=== PATIENT | male | born 1950 | race Caucasian/White ===

== ENCOUNTER → 2018-05-14 | Outpatient (CLI) | payer MEDICARE, OTHER ==
[~2018-05-14] MED LIST: ACYC800 PO; AMLO5 PO; ASPI325EC PO; ASPI81CH PO; ATOR10 PO; ATOR40TA PO; BISA5EC PO; CLOP75 PO; EFFIENT 10 MG PO; EFFIENT10 MG PO; FERR325 PO; FISH1000 PO; Feosol45 MG PO; GABA300 PO; HYDACE5 PO; HYDMOR2 PO; HYDMOR4 PO; IBUP600 PO; KETO10 PO; LISI5 PO; Lisinopril2.5 MG; METO25ER PO; NAPR500 PO; OXYACE5T PO; OXYACE7.5T PO; OXYC20ER; OXYC5; PANT40; PANT40 PO; Plavix75 MG PO; Prinivil5 MG PO; SUCR1 PO; TICA90TA PO; TRILYTE PO; VALA500 PO
[2018-05-14 17:27] LABS: U Cannabinoids Screen DETECTED
[2018-05-14 17:28] LABS: U Amphetamine Screen DETECTED; U Barbituate Screen Not Detected; U Benzodiazapine Screen Not Detected; U Buprenorphine Screen Not Detected; U Cocaine Screen Not Detected; U Methadone Screen Not Detected; U Methamphetamine Screen Not Detected; U Opiates Screen Not Detected; U Oxycodone Screen Not Detected; U Phencyclidine Screen Not Detected; U Propoxyphene Screen Not Detected
== END ==
LOC: LAB 16:47 → LAB SHORT 16:47
PROVIDERS: Internal Medicine Hematology & Oncology
DX: Z51.81 Encounter for therapeutic drug level monitoring (principal); Z79.899 Other long term (current) drug therapy

== ENCOUNTER → 2018-11-30 | Outpatient (CLI) | payer MEDICARE, OTHER ==
[2018-11-30 14:08] LABS: U Amphetamine Screen Not Detected; U Barbituate Screen Not Detected; U Benzodiazapine Screen Not Detected; U Buprenorphine Screen Not Detected; U Cannabinoids Screen DETECTED; U Cocaine Screen Not Detected; U Methadone Screen Not Detected; U Methamphetamine Screen Not Detected; U Opiates Screen Not Detected; U Oxycodone Screen Not Detected; U Phencyclidine Screen Not Detected; U Propoxyphene Screen Not Detected
== END | disposition home or self-care (01) ==
LOC: LAB 12:38 → LAB SHORT 12:38
PROVIDERS: Internal Medicine Hematology & Oncology
DX: F11.20 Opioid dependence, uncomplicated (principal); Z79.899 Other long term (current) drug therapy
CPT/HCPCS: G0480

== ENCOUNTER 2019-02-13 06:53 | Inpatient (IN) | payer MEDICARE, OTHER ==
[~2019-02-13] VITALS: Ht 167.6 cm; Wt 48.6 kg
[~2019-02-13 06:53] MED LIST changes: +CEFP200 PO; +CLON.1 PO; +Flagyl500 MG PO
[2019-02-13 07:30] LABS: BASOPHILS ABSOLUTE AUTO 0.05 K/mm3 (0.00-0.23); BASOPHILS PERCENT AUTO 0 % (0-2); EOSINOPHILS ABSOLUTE AUTO 0.42 K/mm3 (0.00-0.68); EOSINOPHILS PERCENT AUTO 2 % (0-6); Hematocrit 43.1 % (37.0-53.0); Hemoglobin 14.5 g/dL (13.5-17.5); IMMATURE GRAN PERCENT AUTO 1 % (0-1); LYMPHOCYTES ABSOLUTE AUTO 2.47 K/mm3 (0.84-5.20); LYMPHOCYTES PERCENT AUTO 14 % (21-46); MONOCYTES ABSOLUTE AUTO 1.28 K/mm3 (0.16-1.47); MONOCYTES PERCENT AUTO 7 % (4-13); Mean Corpuscular HGB 30.5 pg (26.0-34.0); Mean Corpuscular HGB Conc 33.6 g/dL (31.5-36.5); Mean Corpuscular Volume 91 fL (80-100); Mean Platelet Volume 10.4 fL (9.1-12.4); NEUTROPHILS ABSOLUTE AUTO 13.77 K/mm3 (1.96-9.15); NEUTROPHILS PERCENT AUTO 76 % (41-73); Platelet Count 205 K/mm3 (150-400); RDW Coefficient Variation 13.3 % (11.7-14.2); RDW Standard Deviation 44.9 fL (35.1-46.3); Red Blood Cell Count 4.75 M/mm3 (4.30-5.90); White Blood Cell Count 18.09 K/mm3 (4.00-11.30)
[2019-02-13 07:41] LABS: Alanine Aminotransfer (ALT/SGP 13 U/L (12-78); Albumin, Blood 3.5 g/dL (3.4-5.0); Albumin/Globulin Ratio 0.9 (0.8-1.8); Alk Phos 71 U/L (50-136); Anion Gap 9 mmol/L (6-16); Aspartate Aminotrans (AST/SGOT 15 U/L (12-37); Bilirubin, Total 0.8 mg/dL (0.1-1.0); Blood Urea Nitrogen 23 mg/dL (8-24); Bun/Creatinine Ratio 31.2 (12.0-20.0); CO2, Blood 26 mmol/L (21-32); Chloride, Blood 103 mmol/L (98-108); Creatinine, Blood 0.74 mg/dL (0.60-1.20); Globulin, Blood 3.9 g/dL (2.2-4.0); Glomerular Filtration Rate >60 (60-); Glucose, Blood 95 mg/dL (70-99); Potassium, Blood 3.8 mmol/L (3.5-5.5); Sodium, Blood 138 mmol/L (136-145); Total Protein, Blood 7.4 g/dL (6.4-8.2)
--- NOTE | 2019-02-13 10:28 | NUR ---
PATIENT GAVE PERMISSION FOR ME TO CARE FOR HIM TODAY 02/13/19. History, Chart, Medications and Allergies reviewed before start of procedure.Patient confirms NPO status and agrees with scheduled surgery. Surgical site prepped with 2% Chlorhexidine cloth wipe.
--- NOTE | 2019-02-13 10:54 | NUR ---
STUDENT RN ASSISTING IN PREOPERATIVE CARE. AGREE WITH HER CHARTING AND CARE.
--- NOTE | 2019-02-13 11:26 | NUR ---
02/13/[address] OK WITH UNASYN 3GM IV GIVEN IN ER AT [address] LLOYD CANCELED FLAGYL 500MG IV ORDERED BY ER TO BE GIVEN.
--- NOTE | 2019-02-13 14:25 | NUR ---
REPORT FROM CREDIT ASSESSMENT ANALYST.
--- NOTE | 2019-02-13 14:40 | NUR ---
PT TO ROOM 233. PT DROWSY. ARRIVES WITH 2 IVS TO LEFT ARM, ON ROOM AIR. NEW COLOSTOMY TO LLQ (NO OUTPUT), SUAERZ NOTED WITH DEVIN URINE. VSS. NO FAMILY AT THIS TIME.
--- NOTE | 2019-02-13 15:59 | NUR ---
IVF STARTED PER EMAR. PT MEDICATED WITH TORADOL AND DILAUDID FOR PAIN. PT RESTING. DOZES OFF EASILY.
--- NOTE | 2019-02-13 16:45 | NUR ---
PT SEEMS RESTFUL. RESP EVEN AND NON LABORED. BP IMPROVED.
--- NOTE | 2019-02-13 18:30 | NUR ---
PT STILL APPEARS COMFORTABLE. DROWSY. WAKES WITH VERBAL STIMULI. FOLLOWS SIMPLE DIRECTION. SPOKE WITH FAMILY ON THE PHONE EARLIER FOR UPDATE.
--- NOTE | 2019-02-13 19:22 | NUR ---
REPORT TO DONNA WU.
[2019-02-14 04:30] LABS: BASOPHILS ABSOLUTE AUTO 0.01 K/mm3 (0.00-0.23); BASOPHILS PERCENT AUTO 0 % (0-2); EOSINOPHILS PERCENT AUTO 0 % (0-6); Hematocrit 34.1 % (37.0-53.0); Hemoglobin 11.4 g/dL (13.5-17.5); IMMATURE GRAN ABSOLUTE AUTO 0.08 K/mm3 (0.00-0.10); IMMATURE GRAN PERCENT AUTO 1 % (0-1); LYMPHOCYTES ABSOLUTE AUTO 0.59 K/mm3 (0.84-5.20); LYMPHOCYTES PERCENT AUTO 4 % (21-46); MONOCYTES ABSOLUTE AUTO 1.18 K/mm3 (0.16-1.47); MONOCYTES PERCENT AUTO 8 % (4-13); Mean Corpuscular HGB 31.1 pg (26.0-34.0); Mean Corpuscular HGB Conc 33.4 g/dL (31.5-36.5); Mean Corpuscular Volume 93 fL (80-100); Mean Platelet Volume 10.6 fL (9.1-12.4); NEUTROPHILS ABSOLUTE AUTO 12.81 K/mm3 (1.96-9.15); NEUTROPHILS PERCENT AUTO 87 % (41-73); Platelet Count 201 K/mm3 (150-400); RDW Coefficient Variation 13.4 % (11.7-14.2); RDW Standard Deviation 46.3 fL (35.1-46.3); Red Blood Cell Count 3.67 M/mm3 (4.30-5.90); White Blood Cell Count 14.67 K/mm3 (4.00-11.30)
[2019-02-14 04:46] LABS: Anion Gap 7 mmol/L (6-16); Blood Urea Nitrogen 26 mg/dL (8-24); Bun/Creatinine Ratio 30.6 (12.0-20.0); CO2, Blood 28 mmol/L (21-32); Calcium, Blood 7.5 mg/dL (8.5-10.1); Chloride, Blood 105 mmol/L (98-108); Creatinine, Blood 0.85 mg/dL (0.60-1.20); Glomerular Filtration Rate >60 (60-); Glucose, Blood 177 mg/dL (70-99); Potassium, Blood 3.9 mmol/L (3.5-5.5); Sodium, Blood 140 mmol/L (136-145)
--- NOTE | 2019-02-14 07:00 | NUR ---
REPORT FROM DONNA WU. ASSUMED PT CARE.
--- NOTE | 2019-02-14 07:08 | NUR ---
NEW BAG OF LR HUNG, PT MEDICATED WITH DILAUDID AND TORADOL IV PER EMAR ORDERS. PT C/O PAIN 06/08 TO ABD. PT ALERT AND ORIENTED. PT WATCHING TV.
--- NOTE | 2019-02-14 07:41 | NUR ---
SHIFT SUMMARY PT A&O X4 T/O SHIFT. POD# 1 SIGMOID COLECTOMY WITH OSTOMY; STOMA BEEFY PINK, VERY SCANT LIQUID OUT. NO ABD DISTENTION; BTX4; PT TOLERATING CLEARS. PAIN MANAGED PER EMAR. VSS; RA; CONT. OXIMETRY IN PLACE. SCD'S TO BLE'S. CALL LIGHT IN REACH; REPORT GIVEN TO DAY SHIFT RN.
--- NOTE | 2019-02-14 08:25 | NUR ---
PT MEDICATED PER EMAR. PT SITTING UP IN BED. NADN. EATING SOME JELLO AND SIPPING TEA. PT WATCHING TV. PT DENIES NAUSEA. ASSESSMENT CHARTED.
--- NOTE | 2019-02-14 09:15 | NUR ---
ABX STARTED. PT IN NO DISTRESS. TRAY CLEARED. PT RESTING AT THIS TIME. CALL LIGHT IN REACH.
--- NOTE | 2019-02-14 09:55 | NUR ---
ABX COMPLETE. PT RESTING IN POSITION OF COMFORT.
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
--- NOTE | 2019-02-14 11:44 | NUR ---
PT MEDICATED WITH ZOFRAN FOR C/O NAUSEA AND HEART BURN. FAMILY AT BEDSIDE.
--- NOTE | 2019-02-14 12:55 | NUR ---
PT MEDICATED WITH 4MG DILAUDID FOR PAIN 05/08. IV ABX INFUSING. FAMILY AT BEDSIDE.
--- NOTE | 2019-02-14 13:20 | NUR ---
PT ABX COMPLETE. PT TO RR TO VOID, 75ML DEVIN URINE COLLECTED.
--- NOTE | 2019-02-14 13:33 | NUR ---
PT UP WALKING HALLS WITH FAMILY.
--- NOTE | 2019-02-14 14:05 | NUR ---
PT RETURNED TO ROOM.
--- NOTE | 2019-02-14 15:10 | NUR ---
PT SITTING UP IN BED. NO DISTRESS NOTED. PT WATCHING TV.
--- NOTE | 2019-02-14 16:00 | NUR ---
DR LLOYD TO ROOM. PLAN TO CONT TO MONITOR.
--- NOTE | 2019-02-14 16:09 | NUR ---
BOTH IVS REDRESSED. NOT IVS FLUSH WELL. PT UP AMB IN HEREDIA.
--- NOTE | 2019-02-14 16:49 | NUR ---
PT RETURNED TO ROOM FROM WALK. WILL MEDICATE FOR PAIN.
--- NOTE | 2019-02-14 16:56 | NUR ---
PT MEDICATED WITH TORADOL AND DILAUDID PER EMAR. PT PLAYING ON COMPUTER.
--- NOTE | 2019-02-14 17:28 | NUR ---
DINNER TRAY PROVIDED. ABX STARTED.
--- NOTE | 2019-02-14 18:31 | NUR ---
PT ABX COMPLETE. FLUSH COMPLETE. PT TALKING ON PHONE. DENIES NEEDS.
--- NOTE | 2019-02-14 18:46 | NUR ---
PT AMBULATED IN HEREDIA. RETURNED TO ROOM AT THIS TIME. NEW CLEAN SOCKS PROVIDED.
--- NOTE | 2019-02-14 19:00 | NUR ---
REPORT AND WALKING ROUNDS WITH DONNA WU.
--- NOTE | 2019-02-15 04:25 | NUR ---
SHFIT SUMMARY PT A&O X4 T/O SHIFT. POD#2 SMALL BOWEL PARTIAL RESECTION AND COLON/SIGMOID RESECTION WITH OSTOMY; SCANT OUT OF STOMA, BEEFY PINK. PAIN MANAGED PER EMAR. PT DENIES SOB, NAUSEA AND CP; RA; VSS; NO ACUTE CHANGES. PT OFF UNIT X1; INDEPENDENT WITH FWW PER PT BASELINE. BTX4; TOLERATING FULL DIET WELL. CALL LIGHT IN REACH; PT DEMONSTRATES USE. WCTM UNTIL REPORT TO DAY SHIFT RN.
--- NOTE | 2019-02-15 07:05 | NUR ---
REPORT FROM DONNA WU. ASSUMED PT CARE.
--- NOTE | 2019-02-15 07:30 | NUR ---
PT APPEARS TO BE RESTING. NADN.
--- NOTE | 2019-02-15 08:10 | NUR ---
PT MEDICATED WITH SCHEDULED MEDS AND PRN DILAUDID. PT DENIES NAUSEA. TOLERATED DINNER LAST PM. DECREASED APPETITE.
--- NOTE | 2019-02-15 08:20 | NUR ---
PT AMBULATING IN HALLS. DENIES NEEDS.
--- NOTE | 2019-02-15 10:38 | NUR ---
PT BACK TO ROOM.
--- NOTE | 2019-02-15 11:00 | NUR ---
PT FAMILY TO ROOM.
--- NOTE | 2019-02-15 11:50 | NUR ---
PT MEDICATED WITH PRN DILAUDID FOR C/O PAIN 04/08. IV ABX STARTED. PT DENIES NAUSEA. FAMILY AT BEDSIDE.
--- NOTE | 2019-02-15 12:25 | NUR ---
IV TO LEFT AC LEAKING. REMOVED AND NEW ACCESS TO RIGHT FA STARTED. PT ALLI WELL. IV ABX ALMOST COMPLETE.
--- NOTE | 2019-02-15 14:45 | NUR ---
PT AMBULATING IN HALLS. DENIES NEEDS.
--- NOTE | 2019-02-15 16:05 | NUR ---
200 allyson colored urine emptied from urinal. pt medicated with 4mg dilaudid po per orders. pt denies nausea.
--- NOTE | 2019-02-15 17:00 | NUR ---
PT AMBULATING IN HALLS.
--- NOTE | 2019-02-15 17:20 | NUR ---
DINNER TRAY PROVIDED.
--- NOTE | 2019-02-16 05:13 | NUR ---
PT C/O INCREASED PAIN "INTESTINES" LEVEL 10 THIS AM WITH WAKENING. MEDICATED WITH PO DILAUDID. PT REPORTING STILL LEVEL 9 AFTER PAIN MEDS. ABD REMAINS DISTENDED. BTS TYMPANIC. OSTOMY WITH OLD BLOOD ONLY. NO FLATUS.NO STOOL. BP 194/86 TEMP 100.1 HGB AND HCT TRENDING DOWN ON LAST LABS. PT WITH APPROX 3 L + LAST 24 HR. HAS JVD. ONLY NOTED CRACKLES L BASE.NO C/O CP OR SOB.URINARY OUTPUT 200 ML DARK WITH BLADDER SCAN CHECKED DUE TO INCREASED ABD PAIN WITH A READING OF 109.PT REFUSED TO ATTEMPT VOID.I CALLED DR LLOYD And DISCUSSED ABOVE WITH NO NEW ORDERS GIVEN.
--- NOTE | 2019-02-16 07:15 | NUR ---
PT SLEEPING WAKES TO VERBAL STIMULI REPORTS ABD PAIN 08/08 STATED THAT HE HAS NO NAUSEA AT THIS TIME OSTOMY HAS SCANT AMT OF DK BLOOD
--- NOTE | 2019-02-16 08:07 | NUR ---
SUMMARY PT DIET ORDER NOTED ADVANCE JIGNESH I DECREASED DIET TO FULL LIQ ONLY. PT VOIDING FURTHER AFTER BLADDER SCAN.
--- NOTE | 2019-02-16 10:15 | NUR ---
PT LAYING IN BED STATED PAIN IS BETTER 4/10 PASSING FLATUS IN BAG OFFERED PAIN MEDS PT DECLINED AT THIS TIME
--- NOTE | 2019-02-16 11:43 | NUR ---
PT WANTING TO GO OUT AND SMOKE
--- NOTE | 2019-02-16 12:15 | NUR ---
dr tafoya by to see pt
--- NOTE | 2019-02-16 13:56 | NUR ---
pt amb outside back req popsicle
--- NOTE | 2019-02-16 18:39 | NUR ---
pt req crackers and milk for dinner still passing flatus in ostomy no stool
--- NOTE | 2019-02-17 05:58 | NUR ---
SUMMARY PT AMBULATORY. VOIDING.PASSING FLATUS AND OLD BLOOD PER OSTOMY. NO C/O NAUSEA THIS SHIFT.SLEPT QUIETLY AFTER IV DILAUDID. WOKE THIS AM AND RECEIVED PO DILAUDID AND TORADOL.CONT TO REFUSE USING IS,PAS. VERB UNDERSTANDING OF RISKS.NO ACUTE CHANGES DURING THE NIGHT.
--- NOTE | 2019-02-17 07:19 | NUR ---
pt sleeping wakes to verbal stimuli stated still passing faltus no stool in ostomy small amt of liquid blood stoma red and moist
--- NOTE | 2019-02-17 12:30 | NUR ---
PT PASSING THICK SOFT DK STOOL ALONG WITH FLATUS NO INCREASED GAS CRAMPS
--- NOTE | 2019-02-17 13:32 | NUR ---
ostomy changed education with pt and handouts given pt to come later will also go over it with her later
--- NOTE | 2019-02-17 19:11 | NUR ---
PT BACK TO ROOM FROM TAKING OUT HIS EARLIER I DID GIVE HER EDUCATION ALSO ON OSTOMY CARE WITH DEMONSTRATION
--- NOTE | 2019-02-18 06:40 | NUR ---
LYING IN SEMI FOWLERS WITH EYES CLOSED. MEDICATED FOR PAIN X2 THIS SHIFT. NO FURTHER CHANGES SINCE START OF SHIFT. SAFETY MEASURES IN PLACE. WILL GIVE HAND OFF TO ONCOMING SHIFT USING SBAR.
--- NOTE | 2019-02-18 17:18 | NUR ---
SHIFT SUMMARY POD5. OSTOMY CLEARING BROWN/LOOSE STOOL. REINFORCE OSTOMY EMPTTING EDUCATION. PT INDEPENDANT IN ROOM, WALKING OUTSIDE TO SMOKE THROUGHOUT SHIFT. PAIN MANAGED DURING SHIFT.
--- NOTE | 2019-02-19 07:37 | NUR ---
SUMMARY: POD 6 COLLECTOMY WITH NEW COLOSTOMY BY DR. LLOYD. NO ACUTE CHANGES THIS SHIFT, VSS, AFEBRILE. TOLERATING REG PO INTAKE, VOIDING CLEAR YELLOW. PT BURPS COLOSTOMY X1 THIS SHIFT WITH RN ENCOURAGEMENT BUT STILL APPEARS UNINTERESTED IN DIRECTING OWN COLOSTOMY CARE. PAIN WELL CONTROLLED WITH 4MG PO DILAUDID. ANTICIPATE DC HOME LATER THIS DAY.
--- NOTE | 2019-02-19 14:30 | NUR ---
DISCHARGE PT DISCHARGED HOME FROM UNIT AT APROX 1430. PT GIVEN WRITTEN AND VERBAL DISCHARGE INSTRUCTIONS AND VERBALIZED UNDERSTANDING OF THESE INSTRUCTIONS. PT REFUSED FURTHER OSTOMY EDUCATION HE STATED "MY AUNT KNOWS HOW TO DO IT". HOME HEALTH IN PLACE FOR CONTINUING OSTOMY EDUCATION. WHEELCHAIR TO CAR.
== END 2019-02-19 14:29 | disposition home or self-care (01) | DRG 330 ==
LOC: ER 06:53 → SURS 06:54 → EDBEDREQSVC 09:44 → SURS 14:08
PROVIDERS: Emergency Medicine; ADMIT Surgery
PROC: 0DTN0ZZ Resection of Sigmoid Colon, Open Approach (ICD-10-PCS; principal; 2019-02-13 10:30)
PROC: 0D1N074 Bypass Sigmoid Colon to Cutaneous with Autologous Tissue Substitute, Open Approach (ICD-10-PCS; 2019-02-13 10:30)
DX: K56.609 Unspecified intestinal obstruction, unspecified as to partial versus complete obstruction (principal); K57.20 Diverticulitis of large intestine with perforation and abscess without bleeding; I73.9 Peripheral vascular disease, unspecified; J44.9 Chronic obstructive pulmonary disease, unspecified; K21.9 Gastro-esophageal reflux disease without esophagitis; N40.0 Benign prostatic hyperplasia without lower urinary tract symptoms; K57.30 Diverticulosis of large intestine without perforation or abscess without bleeding; I10 Essential (primary) hypertension; F17.210 Nicotine dependence, cigarettes, uncomplicated; I25.10 Atherosclerotic heart disease of native coronary artery without angina pectoris
CPT/HCPCS: 36415; 74176; 80048; 80053; 81001; 83605; 83690; 84484; 85025; 88305; 93005; 93010; 94762; 96361; 96365; 96374; 96375; 99284-25; 99285-25; A9270-GY; J0295; J0330; J0360; J1100; J1170; J1650; J1885; J2250; J2405; J2543; J2704; J2710; J3010; J7030; J7120

== ENCOUNTER 2019-03-27 09:19 | Emergency (ER) | payer MEDICARE, OTHER ==
[~2019-03-27] VITALS: Ht 167.6 cm; Wt 44.0 kg
[2019-03-27 10:14] LABS: BASOPHILS ABSOLUTE AUTO 0.02 K/mm3 (0.00-0.23); BASOPHILS PERCENT AUTO 0 % (0-2); EOSINOPHILS ABSOLUTE AUTO 0.01 K/mm3 (0.00-0.68); EOSINOPHILS PERCENT AUTO 0 % (0-6); Hematocrit 44.6 % (37.0-53.0); Hemoglobin 15.2 g/dL (13.5-17.5); IMMATURE GRAN ABSOLUTE AUTO 0.03 K/mm3 (0.00-0.10); IMMATURE GRAN PERCENT AUTO 0 % (0-1); LYMPHOCYTES ABSOLUTE AUTO 2.22 K/mm3 (0.84-5.20); LYMPHOCYTES PERCENT AUTO 18 % (21-46); MONOCYTES ABSOLUTE AUTO 0.98 K/mm3 (0.16-1.47); MONOCYTES PERCENT AUTO 8 % (4-13); Mean Corpuscular HGB 29.3 pg (26.0-34.0); Mean Corpuscular HGB Conc 34.1 g/dL (31.5-36.5); Mean Corpuscular Volume 86 fL (80-100); Mean Platelet Volume 10.4 fL (9.1-12.4); NEUTROPHILS ABSOLUTE AUTO 9.08 K/mm3 (1.96-9.15); NEUTROPHILS PERCENT AUTO 74 % (41-73); Platelet Count 271 K/mm3 (150-400); RDW Coefficient Variation 13.8 % (11.7-14.2); RDW Standard Deviation 43.7 fL (35.1-46.3); Red Blood Cell Count 5.18 M/mm3 (4.30-5.90); White Blood Cell Count 12.34 K/mm3 (4.00-11.30)
[2019-03-27 10:33] LABS: Alanine Aminotransfer (ALT/SGP 20 U/L (12-78); Albumin, Blood 4.3 g/dL (3.4-5.0); Albumin/Globulin Ratio 1.1 (0.8-1.8); Alk Phos 102 U/L (50-136); Anion Gap 10 mmol/L (6-16); Aspartate Aminotrans (AST/SGOT 21 U/L (12-37); Bilirubin, Total 0.9 mg/dL (0.1-1.0); Blood Urea Nitrogen 24 mg/dL (8-24); Bun/Creatinine Ratio 29.4 (12.0-20.0); CO2, Blood 27 mmol/L (21-32); Calcium, Blood 9.6 mg/dL (8.5-10.1); Chloride, Blood 97 mmol/L (98-108); Creatinine, Blood 0.82 mg/dL (0.60-1.20); Glomerular Filtration Rate >60 (60-); Glucose, Blood 116 mg/dL (70-99); Potassium, Blood 3.6 mmol/L (3.5-5.5); Sodium, Blood 134 mmol/L (136-145); Total Protein, Blood 8.3 g/dL (6.4-8.2); Troponin I 0.026 ng/mL (0.000-0.040)
[2019-03-27 12:07] LABS: Source, Urine Clean Catch
[2019-03-27 12:09] LABS: Bilirubin, Urine Neg (Neg); Blood, Urine 1+ (Neg); Glucose Qualitative, Urine Neg (Neg); Ketones, Urine 4+ (Neg); Leukocyte Esterase, Urine Neg (Neg); Nitrite, Urine Neg (Neg); Protein, Urine 2+ (Neg); Urobilinogen, Urine NORM (Normal)
[2019-03-27 12:17] LABS: Appearance, Urine Clear (Clear); Color, Urine Yellow (P-Yellow)
[2019-03-27 12:19] LABS: White Blood Cells, Urine 0-2 /hpf (0-5)
[2019-03-27 12:20] LABS: Red Blood Cells, Urine 0-2 /hpf (0-2)
[2019-03-27 12:22] LABS: Bacteria Not Seen /hpf; Mucus Light (0-Heavy); Squamous Epithelial Cells Rare /hpf (Few)
[2019-03-27] MEDS ORDERED: PROM25 PO (12:35)
== END 2019-03-27 13:04 | disposition home or self-care (01) ==
LOC: ER 09:19
PROVIDERS: Emergency Medicine
DX: R10.32 Left lower quadrant pain (principal); R11.2 Nausea with vomiting, unspecified; R19.7 Diarrhea, unspecified; J44.9 Chronic obstructive pulmonary disease, unspecified; I25.2 Old myocardial infarction; F17.210 Nicotine dependence, cigarettes, uncomplicated; Z93.9 Artificial opening status, unspecified
CPT/HCPCS: 36415; 74018; 80053; 81001; 83690; 83735; 84484; 85025; 93005; 93010; 96361; 96374; 96375; 96376; 99284-25; J1170; J2405; J7120

== ENCOUNTER 2019-03-30 10:31 | Emergency (ER) | payer MEDICARE, OTHER ==
[~2019-03-30] VITALS: Ht 167.6 cm; Wt 39.0 kg
[~2019-03-30 10:31] MED LIST changes: +PROM25 PO
[2019-03-30 10:50] LABS: BASOPHILS ABSOLUTE AUTO 0.06 K/mm3 (0.00-0.23); BASOPHILS PERCENT AUTO 1 % (0-2); EOSINOPHILS ABSOLUTE AUTO 0.35 K/mm3 (0.00-0.68); EOSINOPHILS PERCENT AUTO 4 % (0-6); Hematocrit 40.4 % (37.0-53.0); Hemoglobin 13.6 g/dL (13.5-17.5); IMMATURE GRAN ABSOLUTE AUTO 0.03 K/mm3 (0.00-0.10); IMMATURE GRAN PERCENT AUTO 0 % (0-1); LYMPHOCYTES ABSOLUTE AUTO 3.81 K/mm3 (0.84-5.20); LYMPHOCYTES PERCENT AUTO 40 % (21-46); MONOCYTES ABSOLUTE AUTO 0.94 K/mm3 (0.16-1.47); MONOCYTES PERCENT AUTO 10 % (4-13); Mean Corpuscular HGB 28.9 pg (26.0-34.0); Mean Corpuscular HGB Conc 33.7 g/dL (31.5-36.5); Mean Corpuscular Volume 86 fL (80-100); Mean Platelet Volume 10.4 fL (9.1-12.4); NEUTROPHILS ABSOLUTE AUTO 4.46 K/mm3 (1.96-9.15); NEUTROPHILS PERCENT AUTO 46 % (41-73); Platelet Count 224 K/mm3 (150-400); RDW Coefficient Variation 13.7 % (11.7-14.2); RDW Standard Deviation 42.7 fL (35.1-46.3); White Blood Cell Count 9.65 K/mm3 (4.00-11.30)
[2019-03-30 11:06] LABS: International Normalized Ratio 0.98; Prothrombin Time Results 10.4 Sec (9.7-11.5)
[2019-03-30 11:17] LABS: Albumin/Globulin Ratio 1.3 (0.8-1.8); Bilirubin, Total 0.5 mg/dL (0.1-1.0); Calcium, Blood 9.2 mg/dL (8.5-10.1); Creatinine, Blood 1.36 mg/dL (0.60-1.20); Globulin, Blood 3.1 g/dL (2.2-4.0); Potassium, Blood 3.4 mmol/L (3.5-5.5); Total Protein, Blood 7.1 g/dL (6.4-8.2)
[2019-03-30 12:13] LABS: Source, Urine Clean Catch
[2019-03-30 12:25] LABS: Bilirubin, Urine Neg (Neg); Blood, Urine 1+ (Neg); Glucose Qualitative, Urine Neg (Neg); Ketones, Urine Neg (Neg); Leukocyte Esterase, Urine 1+ (Neg); Nitrite, Urine Neg (Neg); Protein, Urine 1+ (Neg); Specific Gravity, Urine 1.025 (1.003-1.022); Urobilinogen, Urine NORM (Normal)
[2019-03-30] MEDS ORDERED: Zofran4 MG PO (12:27)
[2019-03-30 12:32] LABS: Appearance, Urine Clear (Clear); Color, Urine Yellow (P-Yellow)
[2019-03-30 12:37] LABS: Bacteria Rare /hpf; Red Blood Cells, Urine 0-2 /hpf (0-2); Squamous Epithelial Cells Rare /hpf (Few)
== END 2019-03-30 12:30 | disposition home or self-care (01) ==
LOC: ER 10:31
PROVIDERS: Emergency Medicine
DX: R41.82 Altered mental status, unspecified (principal); R63.4 Abnormal weight loss; Z68.1 Body mass index [BMI] 19.9 or less, adult; E86.0 Dehydration; Z51.5 Encounter for palliative care; Z88.5 Allergy status to narcotic agent; Z88.8 Allergy status to other drugs, medicaments and biological substances; Z79.891 Long term (current) use of opiate analgesic; Z79.899 Other long term (current) drug therapy; I25.2 Old myocardial infarction; J44.9 Chronic obstructive pulmonary disease, unspecified; F17.210 Nicotine dependence, cigarettes, uncomplicated
CPT/HCPCS: 36415; 70450; 71045; 80053; 81001; 85025; 85610; 85730; 87086; 93005; 93010; 96360; 99285-25; J7030

== ENCOUNTER 2019-04-17 11:32 | Emergency (ER) | payer MEDICARE, OTHER ==
[~2019-04-17] VITALS: Ht 165.1 cm; Wt 44.5 kg
[~2019-04-17 11:32] MED LIST changes: +Zofran4 MG PO
[2019-04-17] MEDS ORDERED: ONDA4 PO (11:46)
[2019-04-17] MEDS ORDERED: LORA.5 PO (11:47)
[2019-04-17 12:34] LABS: BASOPHILS ABSOLUTE AUTO 0.03 K/mm3 (0.00-0.23); BASOPHILS PERCENT AUTO 0 % (0-2); EOSINOPHILS ABSOLUTE AUTO 0.01 K/mm3 (0.00-0.68); EOSINOPHILS PERCENT AUTO 0 % (0-6); Hematocrit 45.6 % (37.0-53.0); Hemoglobin 15.5 g/dL (13.5-17.5); IMMATURE GRAN ABSOLUTE AUTO 0.04 K/mm3 (0.00-0.10); IMMATURE GRAN PERCENT AUTO 0 % (0-1); LYMPHOCYTES ABSOLUTE AUTO 2.07 K/mm3 (0.84-5.20); LYMPHOCYTES PERCENT AUTO 17 % (21-46); MONOCYTES ABSOLUTE AUTO 0.83 K/mm3 (0.16-1.47); MONOCYTES PERCENT AUTO 7 % (4-13); Mean Corpuscular HGB 28.8 pg (26.0-34.0); Mean Corpuscular Volume 85 fL (80-100); Mean Platelet Volume 9.8 fL (9.1-12.4); NEUTROPHILS ABSOLUTE AUTO 8.93 K/mm3 (1.96-9.15); NEUTROPHILS PERCENT AUTO 75 % (41-73); Platelet Count 412 K/mm3 (150-400); RDW Coefficient Variation 14.4 % (11.7-14.2); Red Blood Cell Count 5.38 M/mm3 (4.30-5.90); White Blood Cell Count 11.91 K/mm3 (4.00-11.30)
[2019-04-17 12:53] LABS: Alanine Aminotransfer (ALT/SGP 18 U/L (12-78); Albumin, Blood 4.2 g/dL (3.4-5.0); Albumin/Globulin Ratio 1.1 (0.8-1.8); Alk Phos 90 U/L (50-136); Anion Gap 9 mmol/L (6-16); Aspartate Aminotrans (AST/SGOT 19 U/L (12-37); Bilirubin, Total 0.8 mg/dL (0.1-1.0); Blood Urea Nitrogen 39 mg/dL (8-24); Bun/Creatinine Ratio 44.9 (12.0-20.0); CO2, Blood 25 mmol/L (21-32); Calcium, Blood 9.6 mg/dL (8.5-10.1); Chloride, Blood 100 mmol/L (98-108); Creatinine, Blood 0.87 mg/dL (0.60-1.20); Globulin, Blood 3.9 g/dL (2.2-4.0); Glomerular Filtration Rate >60 (60-); Glucose, Blood 96 mg/dL (70-99); Potassium, Blood 3.9 mmol/L (3.5-5.5); Sodium, Blood 134 mmol/L (136-145); Total Protein, Blood 8.1 g/dL (6.4-8.2)
[2019-04-17 14:33] LABS: Source, Urine Clean Catch
[2019-04-17 14:38] LABS: Bilirubin, Urine Neg (Neg); Blood, Urine 1+ (Neg); Glucose Qualitative, Urine Neg (Neg); Ketones, Urine 1+ (Neg); Leukocyte Esterase, Urine Neg (Neg); Nitrite, Urine Neg (Neg); Protein, Urine 2+ (Neg); Urobilinogen, Urine NORM (Normal); pH, Urine 6.5 (5.0-8.0)
[2019-04-17 14:47] LABS: Appearance, Urine Clear (Clear); Color, Urine Yellow (P-Yellow)
[2019-04-17 14:48] LABS: Bacteria Not Seen /hpf; Mucus Light ({null, 0-Heavy}); Red Blood Cells, Urine 0-2 /hpf (0-2); Squamous Epithelial Cells Rare /hpf (Few); White Blood Cells, Urine 0-2 /hpf (0-5)
[2019-04-17] MEDS ORDERED: ONDA4ODT MM (14:56)
== END 2019-04-17 15:24 | disposition home or self-care (01) ==
LOC: ER 11:32
PROVIDERS: Emergency Medicine
DX: K85.90 Acute pancreatitis without necrosis or infection, unspecified (principal); I25.2 Old myocardial infarction; J44.9 Chronic obstructive pulmonary disease, unspecified; M54.9 Dorsalgia, unspecified; G89.29 Other chronic pain; F17.210 Nicotine dependence, cigarettes, uncomplicated; Z88.5 Allergy status to narcotic agent; Z88.6 Allergy status to analgesic agent; Z79.899 Other long term (current) drug therapy
CPT/HCPCS: 36415; 74177; 80053; 81001; 83690; 85025; 96361; 96374-59; 96376; 99284-25; J1170; J7030; Q9967

== ENCOUNTER 2019-07-04 12:33 | Emergency (ER) | payer MEDICARE, OTHER ==
[~2019-07-04] VITALS: Ht 167.6 cm; Wt 38.6 kg
[~2019-07-04 12:33] MED LIST changes: +LORA.5 PO; +ONDA4 PO; +ONDA4ODT MM
== END 2019-07-04 15:58 | disposition home or self-care (01) ==
LOC: ER 12:33
DX: R10.84 Generalized abdominal pain (principal); I25.2 Old myocardial infarction; F17.210 Nicotine dependence, cigarettes, uncomplicated; Z88.5 Allergy status to narcotic agent; Z88.8 Allergy status to other drugs, medicaments and biological substances; Z79.899 Other long term (current) drug therapy
CPT/HCPCS: 74176; 96372; 99284-25; J1170

== ENCOUNTER 2019-08-02 16:01 | Emergency (ER) | payer MEDICARE, OTHER ==
[~2019-08-02] VITALS: Ht 167.6 cm; Wt 40.8 kg
[2019-08-02 17:03] LABS: BASOPHILS ABSOLUTE AUTO 0.04 K/mm3 (0.00-0.23); BASOPHILS PERCENT AUTO 0 % (0-2); EOSINOPHILS ABSOLUTE AUTO 0.03 K/mm3 (0.00-0.68); EOSINOPHILS PERCENT AUTO 0 % (0-6); Hematocrit 42.3 % (37.0-53.0); Hemoglobin 14.4 g/dL (13.5-17.5); IMMATURE GRAN ABSOLUTE AUTO 0.15 K/mm3 (0.00-0.10); IMMATURE GRAN PERCENT AUTO 1 % (0-1); LYMPHOCYTES ABSOLUTE AUTO 2.02 K/mm3 (0.84-5.20); LYMPHOCYTES PERCENT AUTO 15 % (21-46); MONOCYTES ABSOLUTE AUTO 1.08 K/mm3 (0.16-1.47); MONOCYTES PERCENT AUTO 8 % (4-13); Mean Corpuscular HGB 29.8 pg (26.0-34.0); Mean Corpuscular Volume 88 fL (80-100); Mean Platelet Volume 9.7 fL (9.1-12.4); NEUTROPHILS PERCENT AUTO 76 % (41-73); Platelet Count 321 K/mm3 (150-400); RDW Coefficient Variation 15.4 % (11.7-14.2); RDW Standard Deviation 49.5 fL (35.1-46.3); Red Blood Cell Count 4.83 M/mm3 (4.30-5.90); White Blood Cell Count 13.62 K/mm3 (4.00-11.30)
[2019-08-02 17:28] LABS: Alanine Aminotransfer (ALT/SGP 51 U/L (12-78); Albumin/Globulin Ratio 1.1 (0.8-1.8); Alk Phos 75 U/L (50-136); Anion Gap 8 mmol/L (6-16); Aspartate Aminotrans (AST/SGOT 34 U/L (12-37); Bilirubin, Total 0.5 mg/dL (0.1-1.0); Blood Urea Nitrogen 24 mg/dL (8-24); Bun/Creatinine Ratio 33.9 (12.0-20.0); CO2, Blood 25 mmol/L (21-32); Calcium, Blood 9.5 mg/dL (8.5-10.1); Chloride, Blood 105 mmol/L (98-108); Creatinine, Blood 0.71 mg/dL (0.60-1.20); Globulin, Blood 3.5 g/dL (2.2-4.0); Glomerular Filtration Rate >60 (60-); Glucose, Blood 110 mg/dL (70-99); Sodium, Blood 138 mmol/L (136-145); Total Protein, Blood 7.5 g/dL (6.4-8.2)
[2019-08-02] MEDS ORDERED: Catapres-Tts 21 EACH TOP (18:18)
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
== END 2019-08-02 18:51 | disposition home or self-care (01) ==
LOC: ER 16:01
PROVIDERS: Emergency Medicine
DX: R10.84 Generalized abdominal pain (principal); G89.29 Other chronic pain; E86.0 Dehydration; I10 Essential (primary) hypertension; R64 Cachexia; R62.7 Adult failure to thrive; Z68.1 Body mass index [BMI] 19.9 or less, adult; J44.9 Chronic obstructive pulmonary disease, unspecified; I25.2 Old myocardial infarction; F17.210 Nicotine dependence, cigarettes, uncomplicated; Z93.3 Colostomy status; Z88.5 Allergy status to narcotic agent; Z88.8 Allergy status to other drugs, medicaments and biological substances; Z79.899 Other long term (current) drug therapy
CPT/HCPCS: 80053; 83690; 85025; 93005; 93010; 96361; 96374; 96376; 99284-25; J1170; J7030

== ENCOUNTER 2019-08-31 15:01 | Emergency (ER) | payer MEDICARE, OTHER ==
[~2019-08-31] VITALS: Ht 167.6 cm; Wt 40.8 kg
[~2019-08-31 15:01] MED LIST changes: +Catapres-Tts 21 EACH TOP
== END 2019-08-31 15:49 | disposition left against medical advice (07) ==
LOC: ER 15:01
DX: Z53.21 Procedure and treatment not carried out due to patient leaving prior to being seen by health care provider (principal)

== ENCOUNTER 2020-03-06 19:58 | Inpatient (IN) | payer MEDICARE, OTHER ==
[~2020-03-06] VITALS: Ht 165.1 cm; Wt 39.9 kg
[~2020-03-06 19:58] MED LIST changes: +Catapres-Tts 11 EACH TOP; +NARCAN4 MG; +OMEPRAZOLE20 MG PO
[2020-03-06 20:38] LABS: BASOPHILS ABSOLUTE AUTO 0.06 K/mm3 (0.00-0.23); BASOPHILS PERCENT AUTO 0 % (0-2); EOSINOPHILS PERCENT AUTO 0 % (0-6); Hematocrit 42.7 % (37.0-53.0); Hemoglobin 14.3 g/dL (13.5-17.5); IMMATURE GRAN ABSOLUTE AUTO 0.11 K/mm3 (0.00-0.10); IMMATURE GRAN PERCENT AUTO 1 % (0-1); LYMPHOCYTES ABSOLUTE AUTO 1.01 K/mm3 (0.84-5.20); LYMPHOCYTES PERCENT AUTO 5 % (21-46); MONOCYTES PERCENT AUTO 2 % (4-13); Mean Corpuscular HGB 28.8 pg (26.0-34.0); Mean Corpuscular HGB Conc 33.5 g/dL (31.5-36.5); Mean Corpuscular Volume 86 fL (80-100); Mean Platelet Volume 10.3 fL (9.1-12.4); NEUTROPHILS ABSOLUTE AUTO 18.75 K/mm3 (1.96-9.15); NEUTROPHILS PERCENT AUTO 92 % (41-73); Platelet Count 300 K/mm3 (150-400); RDW Coefficient Variation 14.8 % (11.7-14.2); RDW Standard Deviation 47.2 fL (35.1-46.3); Red Blood Cell Count 4.96 M/mm3 (4.30-5.90); White Blood Cell Count 20.43 K/mm3 (4.00-11.30)
[2020-03-06 21:13] LABS: Alanine Aminotransfer (ALT/SGP 15 U/L (12-78); Albumin, Blood 3.8 g/dL (3.4-5.0); Albumin/Globulin Ratio 1.2 (0.8-1.8); Alk Phos 80 U/L (50-136); Anion Gap 8 mmol/L (6-16); Aspartate Aminotrans (AST/SGOT 17 U/L (12-37); Bilirubin, Total 0.5 mg/dL (0.1-1.0); Blood Urea Nitrogen 15 mg/dL (8-24); Bun/Creatinine Ratio 21.8 (12.0-20.0); CO2, Blood 27 mmol/L (21-32); Calcium, Blood 8.8 mg/dL (8.5-10.1); Chloride, Blood 103 mmol/L (98-108); Creatinine, Blood 0.69 mg/dL (0.60-1.20); Globulin, Blood 3.3 g/dL (2.2-4.0); Glomerular Filtration Rate >60 (60-); Glucose, Blood 116 mg/dL (70-99); Magnesium, Blood 1.9 mg/dL (1.6-2.4); Potassium, Blood 3.6 mmol/L (3.5-5.5); Sodium, Blood 138 mmol/L (136-145); Total Protein, Blood 7.1 g/dL (6.4-8.2)
[2020-03-06 21:14] LABS: Troponin I <0.015 ng/mL (0.000-0.040)
[2020-03-06 23:07] LABS: Source, Urine Clean Catch
[2020-03-06 23:11] LABS: Bilirubin, Urine Neg (Neg); Blood, Urine 1+ (Neg); Glucose Qualitative, Urine Neg (Neg); Ketones, Urine 3+ (Neg); Leukocyte Esterase, Urine Neg (Neg); Nitrite, Urine Neg (Neg); Protein, Urine 1+ (Neg); Urobilinogen, Urine NORM (Normal)
[2020-03-06 23:44] LABS: Appearance, Urine Clear (Clear); Color, Urine Yellow (P-Yellow)
[2020-03-06 23:46] LABS: Bacteria Rare /hpf; Mucus Light (0-Heavy); Red Blood Cells, Urine 0-2 /hpf (0-2); Squamous Epithelial Cells Rare /hpf (Few); White Blood Cells, Urine 0-2 /hpf (0-5)
--- NOTE | 2020-03-07 01:59 | NUR ---
ADMIT NOTE HANDOFF RECEIVED FROM ER NURSE ROMA. PT TRANSFERED TO FLOOR VIA GURNEY. PERSONAL POSSESSIONS WITH PT. PT ORIENTED TO UNIT. CALL BUTTON WITHIN REACH.
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
[2020-03-07 08:23] LABS: BASOPHILS ABSOLUTE AUTO 0.02 K/mm3 (0.00-0.23); BASOPHILS PERCENT AUTO 0 % (0-2); EOSINOPHILS ABSOLUTE AUTO 0.01 K/mm3 (0.00-0.68); EOSINOPHILS PERCENT AUTO 0 % (0-6); Hematocrit 41.2 % (37.0-53.0); Hemoglobin 13.4 g/dL (13.5-17.5); IMMATURE GRAN ABSOLUTE AUTO 0.05 K/mm3 (0.00-0.10); IMMATURE GRAN PERCENT AUTO 0 % (0-1); LYMPHOCYTES ABSOLUTE AUTO 3.28 K/mm3 (0.84-5.20); LYMPHOCYTES PERCENT AUTO 24 % (21-46); MONOCYTES ABSOLUTE AUTO 1.03 K/mm3 (0.16-1.47); MONOCYTES PERCENT AUTO 7 % (4-13); Mean Corpuscular HGB 28.3 pg (26.0-34.0); Mean Corpuscular HGB Conc 32.5 g/dL (31.5-36.5); Mean Corpuscular Volume 87 fL (80-100); Mean Platelet Volume 10.4 fL (9.1-12.4); NEUTROPHILS ABSOLUTE AUTO 9.48 K/mm3 (1.96-9.15); NEUTROPHILS PERCENT AUTO 68 % (41-73); Platelet Count 260 K/mm3 (150-400); RDW Coefficient Variation 14.9 % (11.7-14.2); RDW Standard Deviation 48.1 fL (35.1-46.3); Red Blood Cell Count 4.74 M/mm3 (4.30-5.90); White Blood Cell Count 13.87 K/mm3 (4.00-11.30)
[2020-03-07 08:42] LABS: Alanine Aminotransfer (ALT/SGP 13 U/L (12-78); Albumin, Blood 3.7 g/dL (3.4-5.0); Albumin/Globulin Ratio 1.2 (0.8-1.8); Alk Phos 71 U/L (50-136); Anion Gap 10 mmol/L (6-16); Aspartate Aminotrans (AST/SGOT 17 U/L (12-37); Bilirubin, Total 0.5 mg/dL (0.1-1.0); Blood Urea Nitrogen 14 mg/dL (8-24); Bun/Creatinine Ratio 20.8 (12.0-20.0); CO2, Blood 24 mmol/L (21-32); Calcium, Blood 8.2 mg/dL (8.5-10.1); Chloride, Blood 106 mmol/L (98-108); Creatinine, Blood 0.67 mg/dL (0.60-1.20); Globulin, Blood 3.1 g/dL (2.2-4.0); Glomerular Filtration Rate >60 (60-); Glucose, Blood 89 mg/dL (70-99); Potassium, Blood 3.7 mmol/L (3.5-5.5); Sodium, Blood 140 mmol/L (136-145); Total Protein, Blood 6.8 g/dL (6.4-8.2)
--- NOTE | 2020-03-07 09:52 | NUR ---
PATIENT WAS BROUGHT BELONGINGS FROM HOME. HE IS VERY ANXIOUS ABOUT THE FACT THAT HIS WHEELCHAIR WAS NOT DELIVERED. I SPOKE WITH THE SCREENING TENT AND WITH THE NURSING BALER OPERATOR ABOUT THE MISSING WHEELCHAIR. WE ARE CURRENLTY LOOKING FOR IT. PATIENT IS UNCOMFORTABLE AND NOTED THAT HAS SOME FORGETFUL TENDENCIES.
--- NOTE | 2020-03-07 17:52 | NUR ---
Initial Visit: Pt is alert, oriented. He is laying in bed, states he is very painful. Pain is his main complaint at this time. Pt reports severe, constant pain in his abd and back. He suffers with this pain everyday and gets some relief from medications such as PO dilaudid. Reviewed strategies to reduce pain. Pt has high levels of anxiety related to his body pain and states that this results in emotional pain. He doesn't have non-pharmacological strategies in place for coping. Encouraged imagery, distraction. He states that he can't even think long enough to do any imagery and this doesn't help anyway. He is able to distract himself with TV at times for coping. He has been told that there is nothing that can be done for his pain and that pain will persist and get worse with time. Reviewed hospice experience. He expresses fear over not being able to return to the hospital and states that "they were trying to talk me into dying. Like make my mind believe it so that my body does it." He reports that he was told that IV fluid would kill him. He states that he opted to have IV fluids and it did not kill him. Explained at end of life stage that it is not helpful to have fluids if a person was actively dying. He verbalizes understanding and states that he was not in that phase and is living now because he pursued treatment for dehydration. He does not feel as though his pain was managed on hospice. Instructed on hospice philosophy. Pt is open to this discussion and is listening. Gentle after school counselor to pay attention if providers start to suggest hospice again and to ask questions. Pt is polite and interactive during discussion. Attempted to reframe hospice experience to encourage revisiting this decision if it happens to be a discussion again. Pt is a full code. He understands risks of CPR to be broken or fractured ribs and trauma to the chest. He is not willing to change his code status and desires to remain a full code. Pt is experiencing severe fatigue from chronic pain. Encourage other strategies of coping with chronic pain. His personal goals are to get well, however he has been told that he will always be in pain and that it will get worse. Anxiety is contributing to discomfort around pain management; consider medication support for anxiety to assist with giving the pt a sense of rest and relaxation. Pt is not sleeping at night due to pain. He states that good sleep is impossible and he wakes up every hour in pain. Will continue to after school counselor patient on coping skills when able for therapeutic visits. Medication for anxiety and insomnia may improve pain. accounting advisory services manager referal updated. Request help for pt to get to a pain specialist. He reports that due to his disability, he and his are not able to drive. They are on a fixed income and cannot afford to travel anywhere for care. Pursue plan of follow up with pain clinic to reduce trips to hospital and readmissions. Pt high risk for readmission to the hospital.
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
[2020-03-08 04:38] LABS: Hematocrit 35.2 % (37.0-53.0); Hemoglobin 11.6 g/dL (13.5-17.5); Mean Corpuscular HGB 28.4 pg (26.0-34.0); Mean Corpuscular Volume 86 fL (80-100); Mean Platelet Volume 10.1 fL (9.1-12.4); Platelet Count 196 K/mm3 (150-400); RDW Coefficient Variation 14.9 % (11.7-14.2); RDW Standard Deviation 47.8 fL (35.1-46.3); Red Blood Cell Count 4.08 M/mm3 (4.30-5.90)
[2020-03-08 04:54] LABS: Anion Gap 6 mmol/L (6-16); Blood Urea Nitrogen 15 mg/dL (8-24); Bun/Creatinine Ratio 20.7 (12.0-20.0); CO2, Blood 27 mmol/L (21-32); Calcium, Blood 7.6 mg/dL (8.5-10.1); Chloride, Blood 107 mmol/L (98-108); Creatinine, Blood 0.73 mg/dL (0.60-1.20); Glomerular Filtration Rate >60 (60-); Glucose, Blood 91 mg/dL (70-99); Potassium, Blood 3.5 mmol/L (3.5-5.5); Sodium, Blood 140 mmol/L (136-145)
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
--- NOTE | 2020-03-08 07:31 | NUR ---
ASSUMPTION OF CARE NOTE- PATIENT IS IN A MOOD THIS MORNING, HE STATES THAT HE STILL HAS EATEN NOTHING IN FOUR DAYS, HE WAS GIVEN FOOD AND OFFERED MULTIPLE SNACKS YESTERDAY BY MYSELF AND THE AID. HE DID NOT LIKE THE MEALS THAT WERE BROUGHT. HE IS MILDLY FORGETFUL. I HAVE DONE AN ASSESSMENT ON THE PATIENT. HE IS CACHECTIC AND DEFINITELY MALNOURISHED. SEEMS TO HAVE A VERY COMPLICATED DIET AT HOME, BUT HAS DRANK MULTIPLE WHOLE MILKS. HE STATES HE GOES THROUGH 2 GALLONS OF MILK A WEEK. WILL SPEAK WITH THE DIETITIAN TO TRY TO ADJUST THE CURRENT HOSPITAL FOODS AND HOPE TO HELP THE PATIENT ENJOY HIS MEALS WHILE HE IS HERE.
--- NOTE | 2020-03-08 08:46 | NUR ---
PATIENT IS UNPLEASANT THIS MORNING. HE STATES THAT EVERYTHING WE ARE DOING IN HIW CARE IS WRONG, HIS FOOD IS ALWAYS COLD, THAT WE ARE NOT ABLE TO KEEP UP WITH HIS STANDARDS. I ASKED HOW WE COULD MAKE IT BETTER HE TOLD ME THAT WE COULDNT. I WILL CONTINUE TO TRY TO MAKE HIS CARE BETTER. HE IS UNHAPPY ABOUT HIS DOSES OF STOOL SOFTENER AND LAXATIVES, HE STATES THAT THE FOOD IS GROSS AND INEDIBLE. I DID TRY TO ORDER HIM ANOTHER TRAY. HE TOLD ME "DON'T BOTHER" WITH AN EXPLETIVE IN THE MIDDLE. WE HAVE SPOKEN ABOUT HIS LANGUAGE AND BEHAVIOR AND THAT I AM ONLY HERE TO HELP. HE IS HAVING NONE OF IT.
--- NOTE | 2020-03-08 08:54 | NUR ---
PATIENT STATES THAT THE SERVICE ON THE FLOOR IS TERRIBLE AND HE HAS NEVER SEEN SUCH BAD SERVICE. HE IS TELLING THE DOCTOR THAT THE NURSES ARE NOT OFFERING HIM HIS PAIN PILLS EVERY FOUR HOURS, THAT HE IS HAVING TO WAIT 5 HOURS OR MORE FOR HIS PAIN PILLS. HE IS UNHAPPY IF HIS FOOD IS NOT HOT POSSIBLE. HE IS NOT GETTING TO HIS FOOD WHEN IT IS BEING BROUGHT IN. HE IS ALSO TALKING WITH THE DOCTOR THAT HE FEELS HE IS NOT BEING SERVICED TO THE BEST OF OUR ABILITY. HIS LANGUAGE IS STILL INAPPROPRIATE. HIS LABS LOOK BETTER AND HE IS UNHAPPY WITH THE PILLS HE IS BEING GIVEN.
[2020-03-08] MEDS ORDERED: DOCU100 PO (10:14)
[2020-03-08] MEDS ORDERED: SENN187 PO (10:14)
[2020-03-08] MEDS ORDERED: VISBIOME 112.51 EACH PO (10:15)
[2020-03-08] MEDS ORDERED: CIPR500 PO (10:16)
[2020-03-08] MEDS ORDERED: METR500 PO (10:16)
--- NOTE | 2020-03-08 11:18 | NUR ---
DISCHARGE SUMMARY PATIENT INSTRUCTIONS GIVEN TO THE PATIENT. HE SIGNED AND ASKED TO BE WHEELED OUT. PATIENT IV REMOVED. NO ACUTE CONCERNS AT THIS TIME.
== END 2020-03-08 10:29 | disposition home or self-care (01) | DRG 392 ==
LOC: ER 19:58 → MEDS 03-07 01:06
PROVIDERS: Emergency Medicine; Internal Medicine; ADMIT Internal Medicine
DX: K52.9 Noninfective gastroenteritis and colitis, unspecified (principal); R64 Cachexia; E87.2 Acidosis; Z68.1 Body mass index [BMI] 19.9 or less, adult; I10 Essential (primary) hypertension; R82.90 Unspecified abnormal findings in urine; G89.29 Other chronic pain; M54.9 Dorsalgia, unspecified; J44.9 Chronic obstructive pulmonary disease, unspecified; I25.10 Atherosclerotic heart disease of native coronary artery without angina pectoris; I73.9 Peripheral vascular disease, unspecified; E78.5 Hyperlipidemia, unspecified; D50.9 Iron deficiency anemia, unspecified; K21.9 Gastro-esophageal reflux disease without esophagitis; F17.210 Nicotine dependence, cigarettes, uncomplicated; I25.2 Old myocardial infarction; Z95.5 Presence of coronary angioplasty implant and graft
CPT/HCPCS: 36415; 74177; 80048; 80053; 81001; 83605; 83690; 83735; 84484; 85025; 85027; 87086; 93005; 93010; 94762; 96361-59; 96365-59; 96367; 96375-59; 96376; 96376-59; 99285-25; J0744; J1170; J2405; J7030; Q9967

== ENCOUNTER 2020-03-20 10:05 | Emergency (ER) | payer MEDICARE, OTHER ==
[~2020-03-20] VITALS: Ht 167.6 cm; Wt 36.3 kg
[~2020-03-20 10:05] MED LIST changes: +CIPR500 PO; +DOCU100 PO; +METR500 PO; +SENN187 PO; +VISBIOME 112.51 EACH PO
[2020-03-20 10:33] LABS: BASOPHILS ABSOLUTE AUTO 0.04 K/mm3 (0.00-0.23); BASOPHILS PERCENT AUTO 1 % (0-2); EOSINOPHILS PERCENT AUTO 3 % (0-6); Hematocrit 40.2 % (37.0-53.0); Hemoglobin 13.2 g/dL (13.5-17.5); IMMATURE GRAN ABSOLUTE AUTO 0.03 K/mm3 (0.00-0.10); IMMATURE GRAN PERCENT AUTO 0 % (0-1); LYMPHOCYTES ABSOLUTE AUTO 1.77 K/mm3 (0.84-5.20); LYMPHOCYTES PERCENT AUTO 22 % (21-46); MONOCYTES ABSOLUTE AUTO 0.64 K/mm3 (0.16-1.47); MONOCYTES PERCENT AUTO 8 % (4-13); Mean Corpuscular HGB 28.4 pg (26.0-34.0); Mean Corpuscular HGB Conc 32.8 g/dL (31.5-36.5); Mean Corpuscular Volume 87 fL (80-100); Mean Platelet Volume 9.5 fL (9.1-12.4); NEUTROPHILS ABSOLUTE AUTO 5.41 K/mm3 (1.96-9.15); NEUTROPHILS PERCENT AUTO 67 % (41-73); Platelet Count 377 K/mm3 (150-400); RDW Coefficient Variation 15.1 % (11.7-14.2); RDW Standard Deviation 48.3 fL (35.1-46.3); Red Blood Cell Count 4.65 M/mm3 (4.30-5.90); White Blood Cell Count 8.09 K/mm3 (4.00-11.30)
[2020-03-20 10:50] LABS: Alanine Aminotransfer (ALT/SGP 14 U/L (12-78); Albumin, Blood 3.3 g/dL (3.4-5.0); Albumin/Globulin Ratio 0.8 (0.8-1.8); Alk Phos 57 U/L (50-136); Anion Gap 8 mmol/L (6-16); Aspartate Aminotrans (AST/SGOT 27 U/L (12-37); Bilirubin, Total 0.3 mg/dL (0.1-1.0); Blood Urea Nitrogen 18 mg/dL (8-24); Bun/Creatinine Ratio 26.4 (12.0-20.0); CO2, Blood 25 mmol/L (21-32); Calcium, Blood 8.6 mg/dL (8.5-10.1); Chloride, Blood 106 mmol/L (98-108); Creatinine, Blood 0.68 mg/dL (0.60-1.20); Glomerular Filtration Rate >60 (60-); Glucose, Blood 91 mg/dL (70-99); Sodium, Blood 139 mmol/L (136-145); Total Protein, Blood 7.3 g/dL (6.4-8.2)
[2020-03-20] MEDS ORDERED: ONDA4ODT MM (13:04)
[2020-03-20 13:19] LABS: Source, Urine Clean Catch
[2020-03-20 13:25] LABS: Bilirubin, Urine Neg (Neg); Blood, Urine 1+ (Neg); Glucose Qualitative, Urine Neg (Neg); Ketones, Urine 3+ (Neg); Leukocyte Esterase, Urine 1+ (Neg); Nitrite, Urine Pos (Neg); Protein, Urine 1+ (Neg); Urobilinogen, Urine NORM (Normal)
[2020-03-20 13:34] LABS: Appearance, Urine Clear (Clear); Color, Urine Amber (P-Yellow)
[2020-03-20 13:36] LABS: Bacteria Rare /hpf; Calcium Oxalate Crystals Rare /hpf; Red Blood Cells, Urine 0-2 /hpf (0-2); Squamous Epithelial Cells Rare /hpf (Few); White Blood Cells, Urine 0-2 /hpf (0-5)
== END 2020-03-20 14:06 | disposition home or self-care (01) ==
LOC: ER 10:05
PROVIDERS: Emergency Medicine
DX: R10.9 Unspecified abdominal pain (principal); I25.2 Old myocardial infarction; J44.9 Chronic obstructive pulmonary disease, unspecified; I10 Essential (primary) hypertension; D64.9 Anemia, unspecified; K21.9 Gastro-esophageal reflux disease without esophagitis; E78.5 Hyperlipidemia, unspecified; F17.210 Nicotine dependence, cigarettes, uncomplicated; Z93.3 Colostomy status; Z90.49 Acquired absence of other specified parts of digestive tract; Z88.5 Allergy status to narcotic agent; Z88.8 Allergy status to other drugs, medicaments and biological substances; Z79.899 Other long term (current) drug therapy; Z79.2 Long term (current) use of antibiotics
CPT/HCPCS: 36415; 74177; 80053; 81001; 83605; 83690; 85025; 87086; 96361; 96374-59; 96375; 96376; 99284-25; J1170; J2405; J7030; Q9967

== ENCOUNTER 2020-04-02 04:44 | Observation (INO) | payer MEDICARE, OTHER ==
[~2020-04-02] VITALS: Ht 170.2 cm; Wt 38.5 kg
[2020-04-02 05:07] LABS: BASOPHILS ABSOLUTE AUTO 0.08 K/mm3 (0.00-0.23); BASOPHILS PERCENT AUTO 1 % (0-2); EOSINOPHILS ABSOLUTE AUTO 0.45 K/mm3 (0.00-0.68); EOSINOPHILS PERCENT AUTO 3 % (0-6); Hematocrit 46.7 % (37.0-53.0); Hemoglobin 15.1 g/dL (13.5-17.5); IMMATURE GRAN ABSOLUTE AUTO 0.06 K/mm3 (0.00-0.10); IMMATURE GRAN PERCENT AUTO 0 % (0-1); LYMPHOCYTES ABSOLUTE AUTO 4.06 K/mm3 (0.84-5.20); LYMPHOCYTES PERCENT AUTO 28 % (21-46); MONOCYTES ABSOLUTE AUTO 1.12 K/mm3 (0.16-1.47); MONOCYTES PERCENT AUTO 8 % (4-13); Mean Corpuscular HGB 28.4 pg (26.0-34.0); Mean Corpuscular HGB Conc 32.3 g/dL (31.5-36.5); Mean Corpuscular Volume 88 fL (80-100); Mean Platelet Volume 10.3 fL (9.1-12.4); NEUTROPHILS ABSOLUTE AUTO 8.94 K/mm3 (1.96-9.15); NEUTROPHILS PERCENT AUTO 61 % (41-73); Platelet Count 427 K/mm3 (150-400); RDW Coefficient Variation 14.9 % (11.7-14.2); RDW Standard Deviation 47.9 fL (35.1-46.3); Red Blood Cell Count 5.32 M/mm3 (4.30-5.90); White Blood Cell Count 14.71 K/mm3 (4.00-11.30)
[2020-04-02 05:29] LABS: Alanine Aminotransfer (ALT/SGP 25 U/L (12-78); Albumin, Blood 3.7 g/dL (3.4-5.0); Albumin/Globulin Ratio 0.9 (0.8-1.8); Alk Phos 68 U/L (50-136); Anion Gap 5 mmol/L (6-16); Aspartate Aminotrans (AST/SGOT 24 U/L (12-37); Bilirubin, Total 0.2 mg/dL (0.1-1.0); Blood Urea Nitrogen 23 mg/dL (8-24); Bun/Creatinine Ratio 28.4 (12.0-20.0); CO2, Blood 32 mmol/L (21-32); Calcium, Blood 9.3 mg/dL (8.5-10.1); Chloride, Blood 106 mmol/L (98-108); Creatinine, Blood 0.81 mg/dL (0.60-1.20); Globulin, Blood 4.2 g/dL (2.2-4.0); Glomerular Filtration Rate >60 (60-); Glucose, Blood 155 mg/dL (70-99); Potassium, Blood 3.5 mmol/L (3.5-5.5); Sodium, Blood 143 mmol/L (136-145); Total Protein, Blood 7.9 g/dL (6.4-8.2)
[2020-04-02 06:25] LABS: Campylobacter Sp Not Detected (NOT DETECT)
[2020-04-02 06:26] LABS: Adenovirus F 40/41 Not Detected (NOT DETECT); Astrovirus Not Detected (NOT DETECT); Cryptosporidium Not Detected (NOT DETECT); Cyclospora Cayetanensis Not Detected (NOT DETECT); E. Coli O157 Not Detected (NOT DETECT); Entamoeba Histolytica Not Detected (NOT DETECT); Enteroaggregative E. coli-EAEC Not Detected (NOT DETECT); Enteropathogenic E. coli-EPEC Not Detected (NOT DETECT); Enterotoxigenic E. coli-ETEC Not Detected (NOT DETECT); Giardia Lamblia Not Detected (NOT DETECT); Norovirus GI/GII Not Detected (NOT DETECT); Plesiomonas Shigelloides Not Detected (NOT DETECT); Rotavirus A Not Detected (NOT DETECT); Salmonella Sp Not Detected (NOT DETECT); Sapovirus Not Detected (NOT DETECT); Shiga Toxin-prod E. coli-STEC Not Detected (NOT DETECT); Shigella/Enteroin E. coli-EIEC Not Detected (NOT DETECT); Vibrio Cholerae Not Detected (NOT DETECT); Vibrio Sp Not Detected (NOT DETECT); Yersinia Enterocolitica Not Detected (NOT DETECT)
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
--- NOTE | 2020-04-02 15:52 | NUR ---
Met with Swapnil's , Radha, in her hospital room 355. She is awake and alert and open to discussing Swapnil. Swapnil gave this headline writer permission to speak with his earlier today. Radha states she would like to have hospice services for Swapnil when he goes home. She reports "He needs it." She reports they had a bad experience with hospice the last time and felt that Swapnil was constantly reminded by the hospice staff that he was dying. This upset both Swapnil and Radha. She is hopeful that hospice will be able to more effectively manage his symptoms and reduce his suffering. She is also hopeful that they will have hospice staff that focus on the postiives in his life and not the negatives. She reports that she is slowly watching him become weaker. She knows that his time is limited and is hopeful the hospice can provide another layer of support in their home. She agrees with the DNR order that has been placed, stating that the code change was made in the past. She reports that she has caregiver services 6 days/week. Their son Tushar lives with them and is also available 22/05. Radha also stated that on the one day a week that they do not have a caregiver that her sister or mother can come and check in on them. Radha states they live in a one bedroom apartment at the [facility]. She reports that they do not have room for a hospital bed, but she would like to have some suction cup grab bars for their small shower. She is requesting to change to [facility] and would prefer that the hospice intake assessment is done 1-2 days after going home so that Swapnil has a chance to get settled. She is aware that Swapnil would not be offically a hospice pt until after the intake assessment and papers are signed. She voices understanding of this. She is requesting to visit with Swapnil. Spoke with special agent in charge, Francie, who agrees that pt should be able to visit with her in his room. Updated nursing, TRANSFORMATION ANALYST and Radha that a visit will be possible. Currently Swapnil is sleeping and per Radha's request, this headline writer will allow him to sleep. Will plan to follow up tomorrow with Swapnil and Radha and assist with advanced care planning as needed.
--- NOTE | 2020-04-02 19:19 | NUR ---
NEWLY ARRIVED from home, moved in next to , a+o, pain being controled/reduced with medication and diet, rm air, ns infusing with no s/sx of infection or infiltration, bsr shared with nurse and pt
--- NOTE | 2020-04-02 19:33 | NUR ---
ASSUMED CARE RECEIVED REPORT FROM BRYCE HARO. ASSUMED CARE OF PT. RESTING COMFORTABLY AT THIS TIME, NO S/S ACUTE DISTRESS NOTED. DENIES NEEDS AT THIS TIME. CALL LIGHT, POSESSIONS IN REACH. WILL CONTINUE TO MONITOR.
--- NOTE | 2020-04-03 04:44 | NUR ---
0444 THIS RN IN PT ROOM EVALUATING PT'S PAIN AND DISCUSSING PAIN MANAGEMENT. PT STATING "I DON'T UNDERSTAND WHY YOU NURSES CAN'T FOLLOW DOCTOR'S INSTRUCTIONS. THE NURSE YESTERDAY GAVE ME MY ORAL AND IV DILAUDID TOGETHER." THIS RN EXPLAINING TO PT THE RISKS ASSOCIATED WITH GIVING THE MEDICATIONS TOO CLOSE TOGETHER, PT APPEARING FRUSTRATED, STATING THAT HE'S BEEN TAKING THOSE MEDICATIONS IN THAT WAY AT HOME. THIS RN EDUCATING PT ON SAFE PAIN MANAGEMENT, AND HOW PT CAN USE IV DILAUDID FOR BREAK THROUGH PAIN IF ORAL MEDICATION IS NOT SUFFICIENT. PT REMAINS FRUSTRATED BUT AGREEABLE TO PLAN. WILL CONTINUE TO MONITOR PT'S PAIN.
[2020-04-03 05:31] LABS: BASOPHILS ABSOLUTE AUTO 0.03 K/mm3 (0.00-0.23); BASOPHILS PERCENT AUTO 0 % (0-2); EOSINOPHILS ABSOLUTE AUTO 0.15 K/mm3 (0.00-0.68); EOSINOPHILS PERCENT AUTO 2 % (0-6); Hematocrit 32.9 % (37.0-53.0); Hemoglobin 10.7 g/dL (13.5-17.5); IMMATURE GRAN ABSOLUTE AUTO 0.03 K/mm3 (0.00-0.10); IMMATURE GRAN PERCENT AUTO 0 % (0-1); LYMPHOCYTES ABSOLUTE AUTO 2.55 K/mm3 (0.84-5.20); LYMPHOCYTES PERCENT AUTO 26 % (21-46); MONOCYTES ABSOLUTE AUTO 0.71 K/mm3 (0.16-1.47); MONOCYTES PERCENT AUTO 7 % (4-13); Mean Corpuscular HGB 28.5 pg (26.0-34.0); Mean Corpuscular HGB Conc 32.5 g/dL (31.5-36.5); Mean Corpuscular Volume 88 fL (80-100); NEUTROPHILS PERCENT AUTO 65 % (41-73); Platelet Count 232 K/mm3 (150-400); RDW Standard Deviation 47.9 fL (35.1-46.3); Red Blood Cell Count 3.76 M/mm3 (4.30-5.90); White Blood Cell Count 9.97 K/mm3 (4.00-11.30)
[2020-04-03 06:07] LABS: Alanine Aminotransfer (ALT/SGP 15 U/L (12-78); Albumin, Blood 2.6 g/dL (3.4-5.0); Alk Phos 44 U/L (50-136); Anion Gap 4 mmol/L (6-16); Aspartate Aminotrans (AST/SGOT 15 U/L (12-37); Bilirubin, Total 0.4 mg/dL (0.1-1.0); Blood Urea Nitrogen 12 mg/dL (8-24); Bun/Creatinine Ratio 22.8 (12.0-20.0); CO2, Blood 26 mmol/L (21-32); Chloride, Blood 111 mmol/L (98-108); Creatinine, Blood 0.53 mg/dL (0.60-1.20); Globulin, Blood 2.6 g/dL (2.2-4.0); Glomerular Filtration Rate >60 (60-); Glucose, Blood 86 mg/dL (70-99); Magnesium, Blood 1.8 mg/dL (1.6-2.4); Potassium, Blood 3.7 mmol/L (3.5-5.5); Sodium, Blood 141 mmol/L (136-145)
[2020-04-03 06:08] LABS: Calcium, Blood 7.2 mg/dL (8.5-10.1)
[2020-04-03 06:09] LABS: Total Protein, Blood 5.2 g/dL (6.4-8.2)
--- NOTE | 2020-04-03 07:00 | NUR ---
SHIFT SUMMARY PT RESTING COMFORTABLY, NO S/S ACUTE DISTRESS NOTED. WAS MONITORED EVERY 1-2 HOURS WITH NEEDS MET, DENIES NEEDS AT THIS TIME. NO FURTHER C/O PAIN NOTED AT THIS TIME. VS STABLE. CALL LIGHT, POSSESSIONS IN REACH, BED IN LOWEST POSITION WITH ALARMS ON. REPORT GIVEN TO DAY RN.
--- NOTE | 2020-04-03 09:00 | NUR ---
Brief visit with Swapnil this morning. He was visiting with his when I entered the room. She had come into his room from her room next door to have breakfast with him. He reports he wants to go home. His reports she is being discharged today. He says that there is nothing that he is getting here that he can't get at home. Will make sure that hospitalist is aware of pt's desire to go home.
--- NOTE | 2020-04-03 10:33 | NUR ---
REQUESTED pain medication evan, states he was unable to sleep all night, treated per protocol, informed dr gerry said he would work on discharge, awaiting further orders, continuing to monitor and treat
--- NOTE | 2020-04-03 12:14 | NUR ---
DISCHARGED: Reviewed stay, medication, dc instructions and referals, assisted into wc which was then pushed down to waiting family by staff, pt states he is not ready for hospice yet, removed iv with no complications, a+o, states pain is at a 4 as he was getting ready to leave
== END 2020-04-03 12:01 | disposition home health service (06) ==
LOC: ER 04:44 → MEDS 04:45 → ENPENDDIS 04-03 10:00 → MEDS 04-03 12:01
PROVIDERS: Emergency Medicine; ADMIT Internal Medicine
DX: R64 Cachexia (principal); G89.29 Other chronic pain; J44.9 Chronic obstructive pulmonary disease, unspecified; I73.9 Peripheral vascular disease, unspecified; I10 Essential (primary) hypertension; I25.10 Atherosclerotic heart disease of native coronary artery without angina pectoris; Z88.5 Allergy status to narcotic agent; Z88.8 Allergy status to other drugs, medicaments and biological substances; E78.5 Hyperlipidemia, unspecified; K21.9 Gastro-esophageal reflux disease without esophagitis; Z87.891 Personal history of nicotine dependence; Z66 Do not resuscitate; Z79.899 Other long term (current) drug therapy
CPT/HCPCS: 0097U; 36415; 74018; 80053; 83690; 83735; 85025; 96361; 96374; 96375; 96376; 99284-25; G0378; J0780; J1170; J1650; J2405; J7030; J7120

== ENCOUNTER 2020-05-25 22:54 | Inpatient (IN) | payer MEDICARE, OTHER ==
[~2020-05-25] VITALS: Ht 165.1 cm; Wt 36.6 kg
[2020-05-25 23:19] LABS: BASOPHILS ABSOLUTE AUTO 0.04 K/mm3 (0.00-0.23); BASOPHILS PERCENT AUTO 0 % (0-2); EOSINOPHILS ABSOLUTE AUTO 0.01 K/mm3 (0.00-0.68); EOSINOPHILS PERCENT AUTO 0 % (0-6); Hemoglobin 15.1 g/dL (13.5-17.5); IMMATURE GRAN ABSOLUTE AUTO 0.07 K/mm3 (0.00-0.10); IMMATURE GRAN PERCENT AUTO 0 % (0-1); LYMPHOCYTES ABSOLUTE AUTO 1.43 K/mm3 (0.84-5.20); LYMPHOCYTES PERCENT AUTO 9 % (21-46); MONOCYTES ABSOLUTE AUTO 0.71 K/mm3 (0.16-1.47); MONOCYTES PERCENT AUTO 4 % (4-13); Mean Corpuscular HGB 28.4 pg (26.0-34.0); Mean Corpuscular HGB Conc 32.8 g/dL (31.5-36.5); Mean Corpuscular Volume 87 fL (80-100); Mean Platelet Volume 10.9 fL (9.1-12.4); NEUTROPHILS ABSOLUTE AUTO 14.53 K/mm3 (1.96-9.15); NEUTROPHILS PERCENT AUTO 87 % (41-73); Platelet Count 361 K/mm3 (150-400); RDW Coefficient Variation 15.1 % (11.7-14.2); RDW Standard Deviation 47.8 fL (35.1-46.3); Red Blood Cell Count 5.32 M/mm3 (4.30-5.90); White Blood Cell Count 16.79 K/mm3 (4.00-11.30)
[2020-05-25 23:33] LABS: Alanine Aminotransfer (ALT/SGP 17 U/L (12-78); Albumin, Blood 4.5 g/dL (3.4-5.0); Albumin/Globulin Ratio 1.1 (0.8-1.8); Alk Phos 89 U/L (50-136); Anion Gap 9 mmol/L (6-16); Aspartate Aminotrans (AST/SGOT 21 U/L (12-37); Bilirubin, Total 0.4 mg/dL (0.1-1.0); Blood Urea Nitrogen 23 mg/dL (8-24); Bun/Creatinine Ratio 24.7 (12.0-20.0); CO2, Blood 34 mmol/L (21-32); Calcium, Blood 9.8 mg/dL (8.5-10.1); Chloride, Blood 101 mmol/L (98-108); Creatinine, Blood 0.93 mg/dL (0.60-1.20); Globulin, Blood 4.2 g/dL (2.2-4.0); Glomerular Filtration Rate >60 (60-); Glucose, Blood 123 mg/dL (70-99); Potassium, Blood 3.3 mmol/L (3.5-5.5); Sodium, Blood 144 mmol/L (136-145); Total Protein, Blood 8.7 g/dL (6.4-8.2); Troponin I 0.167 ng/mL (0.000-0.040)
[2020-05-26 01:21] LABS: Source, Urine Voided
[2020-05-26 01:23] LABS: Bilirubin, Urine Neg (Neg); Blood, Urine Neg (Neg); Glucose Qualitative, Urine Neg (Neg); Ketones, Urine Neg (Neg); Leukocyte Esterase, Urine Neg (Neg); Nitrite, Urine Neg (Neg); Protein, Urine 3+ (Neg); Urobilinogen, Urine NORM (Normal)
[2020-05-26 01:28] LABS: Appearance, Urine Clear (Clear); Color, Urine Yellow (P-Yellow)
[2020-05-26 01:32] LABS: Amorphous Light (0-Heavy); Bacteria Not Seen /hpf; Red Blood Cells, Urine 0-2 /hpf (0-2); Squamous Epithelial Cells Not Seen /hpf (Few); White Blood Cells, Urine 0-2 /hpf (0-5)
[2020-05-26] MEDS ORDERED: ASPIR 8181 M1 PO (01:39)
--- NOTE | 2020-05-26 05:10 | NUR ---
SHIFT SUMMARY ASSUMED CARE OF PT AT 0130. PT IS A/OX4, DENIES N/T IN EXTREMTIES. HEART SOUNDS REUGLAR, TELE SHOWS SINUS GENA @ 53, DENIES CP. LUNG SOUNDS DIMINISHED WITH CRACKLES IN THE UPPER R QUADRANT, DENIES SOB. PT IS VERY MALNUTISHED, PT STATES THAT SINCE HIS 3 MONTHS AGO HE HAS NOT WANTED TO EAT ANYTHING, PT STATES HE LOST 5LB IN THE PAST MONTH DUE TO POOR APPETITE. PT HAS COLOSTOMY, STOMA IS MOIST, AND RED, PT CAN CHANGE OWN OSTOMY. PT HAS FREQUENT URINATION, ALONG WITH INCONTINENCE, PT WILL CHANGE OWN ATTENDS. PT HAS SCOLIOSIS. HE HAS CONSTANT BACK PAIN DUE TO FRACTURE IN THE PAST. PT HAS SLIGHT TEMP OF 99.6, TYLENOL SUPPOSITORY ORDERED. HOSPITALIST NOTIFED THAT PT WILL NOT TOLERATE NG TUBE IN ED PER ED NURSE. HOSPITALIST AWARE AND SAID THAT IF PT CHANGES HIM MIND THE NURSE CAN PUT ON IN LATER. PT SKIN IS FRAGILE AND HAS SCATTERED BRUISES. NO ACUTE CHANGES DURING THE NIGHT. PT SLEPT FOR A LITTLE. CALL LIGHT IN REACH, BED IN LOWEST POSTION, WILL CONTINUE TO MONITOR UNTIL DAYSHIFT NURSE ARRIVES.
[2020-05-26 07:15] LABS: BASOPHILS ABSOLUTE AUTO 0.03 K/mm3 (0.00-0.23); BASOPHILS PERCENT AUTO 0 % (0-2); EOSINOPHILS PERCENT AUTO 0 % (0-6); Hematocrit 41.8 % (37.0-53.0); Hemoglobin 13.6 g/dL (13.5-17.5); IMMATURE GRAN ABSOLUTE AUTO 0.06 K/mm3 (0.00-0.10); IMMATURE GRAN PERCENT AUTO 1 % (0-1); LYMPHOCYTES ABSOLUTE AUTO 1.99 K/mm3 (0.84-5.20); LYMPHOCYTES PERCENT AUTO 16 % (21-46); MONOCYTES ABSOLUTE AUTO 0.97 K/mm3 (0.16-1.47); MONOCYTES PERCENT AUTO 8 % (4-13); Mean Corpuscular HGB 28.2 pg (26.0-34.0); Mean Corpuscular HGB Conc 32.5 g/dL (31.5-36.5); Mean Corpuscular Volume 87 fL (80-100); Mean Platelet Volume 10.4 fL (9.1-12.4); NEUTROPHILS ABSOLUTE AUTO 9.53 K/mm3 (1.96-9.15); NEUTROPHILS PERCENT AUTO 76 % (41-73); Platelet Count 289 K/mm3 (150-400); RDW Coefficient Variation 15.5 % (11.7-14.2); RDW Standard Deviation 48.9 fL (35.1-46.3); Red Blood Cell Count 4.83 M/mm3 (4.30-5.90); White Blood Cell Count 12.58 K/mm3 (4.00-11.30)
[2020-05-26 07:34] LABS: Alanine Aminotransfer (ALT/SGP 18 U/L (12-78); Albumin, Blood 3.6 g/dL (3.4-5.0); Alk Phos 68 U/L (50-136); Anion Gap 7 mmol/L (6-16); Aspartate Aminotrans (AST/SGOT 22 U/L (12-37); Bilirubin, Total 0.5 mg/dL (0.1-1.0); Blood Urea Nitrogen 20 mg/dL (8-24); Bun/Creatinine Ratio 26.6 (12.0-20.0); CO2, Blood 28 mmol/L (21-32); CPK Creatine Kinase 35 U/L (39-308); Calcium, Blood 8.7 mg/dL (8.5-10.1); Chloride, Blood 105 mmol/L (98-108); Creatinine, Blood 0.75 mg/dL (0.60-1.20); Globulin, Blood 3.5 g/dL (2.2-4.0); Glomerular Filtration Rate >60 (60-); Glucose, Blood 100 mg/dL (70-99); Potassium, Blood 4.1 mmol/L (3.5-5.5); Sodium, Blood 140 mmol/L (136-145); Total Protein, Blood 7.1 g/dL (6.4-8.2); Troponin I 0.154 ng/mL (0.000-0.040)
--- NOTE | 2020-05-26 12:17 | NUR ---
TRANSFER TO MEDICAL FLOOR (FROM PCU) PATIENT ALERT AND ORIENTED X4. RESP E/U AT REST - COUGH NOTED. PATIENT CACHEXIC - REPORTS POOR APPETITE. HEART RATE SR 60'S - NO CARDIAC EVENTS PER ROUND BONER. PATIENT HAS ONGOING CHRONIC BACK AND SIDE PAINS - HE TAKES 4 MG OF DILAUDID EVERY 4-6 HOURS AT HOME. IV DILAUDID ORDERED INPATIENT. PATIENT HAS SLEPT T/O SHIFT - REFUSED TURNING AND CARE THIS AM - REFUSED SQ LOVENOX. PATIENT LEFT UNIT VIA HOSPITAL BED - NO S/SX OF DISTRESS NOTED. PATIENT TRANSFERED TO MEDICAL FLOOR WITH PERSONAL BELONGINGS. REPORT GIVEN TO TRE - MEDICAL FLOOR RN.
--- NOTE | 2020-05-26 12:39 | NUR ---
PT ARRIVED TO THE MEDICAL FLOOR FROM THE PCU VIA BED, PT AT THE TIME OF ARRIVAL WAS ANGRY SAID THAT HE WAS HUNGRY AND WANTED TO EAT NOW, PUT ALSO SAID THAT HE HAD ABD PAIN AT THIS TIME, AND THAT HE HASNT BEEN SEEN BY ANY DOCTORS, PT WAS ORIENTED TO THE ROOM CALL SYSTEM AND LAYOUT, WILL CALL DR. NICOLE FOR THE PT
[2020-05-26 15:52] LABS: Troponin I 0.072 ng/mL (0.000-0.040)
--- NOTE | 2020-05-26 17:43 | NUR ---
PT IS A/OX3, COOPERATIVE AT THIS TIME, THE PT HAS BEEN BED REST SINCE ARRIVING TO THE FLOOR, THE PT REPORTED BACK AND ABD PAIN AFTER TRANSFER TO THE FLOOR FROM THE PCU, AND WAS DEMANDING TO HAVE SOMETHING TO DRINK AND EAT OR HE WAS CHECKING HIMSELF OUT OF THE HOSPITAL, DR. NICOLE CAME AND SPOKE WITH THE PT AND SPENT A SIGNIFICANT AMOUNT OF TIME WITH THE PT EXPLAINING WHY IT WAS UNADVISED AT THIS TIME FOR THE PT TO TAKE ANY PO INTAKE, HOWEVR, THE PT STILL INSISTED ON TRYING SOMETHING, AND CLEAR LIQUIDS WERE ORDERED FOR THE PT, ALSO THE PTS PAIN MEDICATION INTERVAL WAS INCREASED TO THE PTS SATISFACTION, THE PT APPEARS TO BE BREATHING EASILY AND COMFORTABLE AT THIS TIME, CALL LIGHT IN REACH, NO OTHER CHANGES NOTICED THIS SHIFT
--- NOTE | 2020-05-27 03:16 | NUR ---
Awake at intervals, sometimes asking for analgesics and other times in anger for other items. ivf infusing as ordered. Call light in reach
--- NOTE | 2020-05-27 04:33 | NUR ---
SHIFT SUMMARY AWAKE AT INTERVALS WITH C/O PAIN. HAS RECEIVED DILAUDID 1 MG IV ABOUT EVERY 4 HRS FOR VOICED SEVERE PAIN. IVF INFUSING. CALL LIGHT IN REACH
--- NOTE | 2020-05-27 15:42 | NUR ---
SHIFT SUMMARY PT IS A/O X 4 WITH ONGOING C/O PAIN. PT STATES HE HAS CHRONIC PAIN AND HAS BEEN MEDICATED ORDERED. HE DOES REPORT SOME RELIEF WITH THE PAIN MEDS BUT STILL REPORTS THAT IT IS ONGOING. THE PT IS VERY UNPLEASANT AND UNHAPPY WITH STAFF. HE HAS ORDERS FOR CLEAR LIQUID BUT IS REQUESTING TO EAT REGULAR FOOD, DR NICOLE TALKED WITH HIM AT LENGTH ABOUT THIS. REQUESTED BY DR NICOLE A MESSAGE WAS LEFT WITH DR MUNGUIA IN HOPES HE COULD COME ROUND ON THE PT TO DISCUSS THE PLAN OF CARE. PT HAS A CHRONIC COLOSTOMY WHICH IS IS PLACE AND HAS BEEN PRODUCING LIQUID STOOL THROUGHOUT THE DAY. HE HAD HIS GI SERIES THIS MORNING AND IS AWAITNG ONE OF THE DOCTORS TO DISCUSS THE RESULTS WITH HIM. THE NITRITIONIST CAME TO SPEAK WITH HIM TODAY WELL THE SPECIAL CERTIFICATE DICTATOR BUT THE PT REMAINS UNPLESANT AND UNSATISFIED WITH THE CURRENT INTERVENTIONS. HES ON TELE AND THE TECH REPORTS HE IS IN SINUS RHYTHM. HE IS USING THE URINAL AT THE BEDSIDE. HE IS ABLE TO MAKE HIS NEEDS KNOWN AND DOES SO FREQUENTLY EITHER WITH THE CALL LIGHT OR YELLING OUT INTO THE HEREDIA. HE HAS HIS CALL LIGHT IN REACH.
--- NOTE | 2020-05-27 18:17 | NUR ---
Mr. Wilkerson was very angry and complained bitterly of numerous things. He wants to eat, he wants his pain controlled, and he beleives everyone here "is lying" to him. I knew his Noreen as she was a frequent pt here before her passing. I attempted to engage him in a conversation about Noreen, but he just yelled at me to leave him alone.
== END 2020-05-27 17:09 | disposition left against medical advice (07) | DRG 380 ==
LOC: ER 22:54 → PCU 22:55 → MEDS 22:55 → PCU 22:55 → MEDS 05-26 12:03
PROVIDERS: Emergency Medicine; ADMIT Internal Medicine
DX: K31.5 Obstruction of duodenum (principal); E43 Unspecified severe protein-calorie malnutrition; R64 Cachexia; Z68.1 Body mass index [BMI] 19.9 or less, adult; I25.2 Old myocardial infarction; F17.210 Nicotine dependence, cigarettes, uncomplicated; Z79.82 Long term (current) use of aspirin; Z93.3 Colostomy status; I25.10 Atherosclerotic heart disease of native coronary artery without angina pectoris; I73.9 Peripheral vascular disease, unspecified; E78.5 Hyperlipidemia, unspecified; D50.9 Iron deficiency anemia, unspecified; E86.0 Dehydration; F11.90 Opioid use, unspecified, uncomplicated; I10 Essential (primary) hypertension; J44.9 Chronic obstructive pulmonary disease, unspecified
CPT/HCPCS: 36415; 71045; 74176; 74240; 80053; 81001; 82550; 83690; 84484; 85025; 93005; 93010; 93306; 96361; 96374; 96375; 96376; 99285-25; G0378; J0360; J1170; J2060; J2405; J3480; J7030; J7120

== ENCOUNTER 2020-07-11 19:28 | Emergency (ER) | payer MEDICARE, OTHER ==
[~2020-07-11] VITALS: Ht 167.6 cm; Wt 36.3 kg
[~2020-07-11 19:28] MED LIST changes: +ASPIR 8181 M1 PO
[2020-07-11] MEDS ORDERED: REMERON15 MG PO (19:41)
[2020-07-11 19:51] LABS: BASOPHILS ABSOLUTE AUTO 0.05 K/mm3 (0.00-0.23); BASOPHILS PERCENT AUTO 1 % (0-2); EOSINOPHILS ABSOLUTE AUTO 0.46 K/mm3 (0.00-0.68); EOSINOPHILS PERCENT AUTO 5 % (0-6); Hematocrit 43.1 % (37.0-53.0); Hemoglobin 14.2 g/dL (13.5-17.5); IMMATURE GRAN ABSOLUTE AUTO 0.02 K/mm3 (0.00-0.10); IMMATURE GRAN PERCENT AUTO 0 % (0-1); LYMPHOCYTES ABSOLUTE AUTO 2.16 K/mm3 (0.84-5.20); LYMPHOCYTES PERCENT AUTO 23 % (21-46); MONOCYTES ABSOLUTE AUTO 0.53 K/mm3 (0.16-1.47); MONOCYTES PERCENT AUTO 6 % (4-13); Mean Corpuscular HGB 28.7 pg (26.0-34.0); Mean Corpuscular HGB Conc 32.9 g/dL (31.5-36.5); Mean Corpuscular Volume 87 fL (80-100); Mean Platelet Volume 10.1 fL (9.1-12.4); NEUTROPHILS PERCENT AUTO 67 % (41-73); Platelet Count 297 K/mm3 (150-400); RDW Standard Deviation 45.1 fL (35.1-46.3); Red Blood Cell Count 4.95 M/mm3 (4.30-5.90); White Blood Cell Count 9.62 K/mm3 (4.00-11.30)
[2020-07-11 20:14] LABS: Alanine Aminotransfer (ALT/SGP 14 U/L (12-78); Albumin, Blood 3.6 g/dL (3.4-5.0); Albumin/Globulin Ratio 0.9 (0.8-1.8); Alk Phos 111 U/L (50-136); Anion Gap 7 mmol/L (6-16); Aspartate Aminotrans (AST/SGOT 18 U/L (12-37); Bilirubin, Total 0.5 mg/dL (0.1-1.0); Blood Urea Nitrogen 22 mg/dL (8-24); Bun/Creatinine Ratio 30.9 (12.0-20.0); CO2, Blood 28 mmol/L (21-32); Calcium, Blood 9.1 mg/dL (8.5-10.1); Chloride, Blood 102 mmol/L (98-108); Creatinine, Blood 0.71 mg/dL (0.60-1.20); Globulin, Blood 3.9 g/dL (2.2-4.0); Glomerular Filtration Rate >60 (60-); Glucose, Blood 111 mg/dL (70-99); Magnesium, Blood 1.9 mg/dL (1.6-2.4); Potassium, Blood 3.6 mmol/L (3.5-5.5); Sodium, Blood 137 mmol/L (136-145); Total Protein, Blood 7.5 g/dL (6.4-8.2)
[2020-07-11 21:26] LABS: Source, Urine Clean Catch
[2020-07-11 21:36] LABS: Appearance, Urine Clear (Clear); Blood, Urine 1+ (Neg); Color, Urine Yellow (P-Yellow); Glucose Qualitative, Urine Neg (Neg); Ketones, Urine 3+ (Neg); Leukocyte Esterase, Urine Neg (Neg); Nitrite, Urine Neg (Neg); Protein, Urine 1+ (Neg); Specific Gravity, Urine 1.015 (1.003-1.022); Urobilinogen, Urine 1+ (Normal)
[2020-07-11 21:45] LABS: Bilirubin, Urine 1+ (Neg)
[2020-07-11 21:47] LABS: Bacteria Rare /hpf; Mucus Light (0-Heavy); Red Blood Cells, Urine 0-2 /hpf (0-2); Squamous Epithelial Cells Rare /hpf (Few); White Blood Cells, Urine Not Seen /hpf (0-5)
[2020-07-11] MEDS ORDERED: CIPRO250 MG PO (22:29)
[2020-07-11] MEDS ORDERED: Flagyl250 MG PO (22:29)
== END 2020-07-11 23:37 | disposition home or self-care (01) ==
LOC: ER 19:28
PROVIDERS: Emergency Medicine
DX: K52.9 Noninfective gastroenteritis and colitis, unspecified (principal); G89.29 Other chronic pain; I10 Essential (primary) hypertension; J44.9 Chronic obstructive pulmonary disease, unspecified; I25.10 Atherosclerotic heart disease of native coronary artery without angina pectoris; F17.210 Nicotine dependence, cigarettes, uncomplicated; Z88.4 Allergy status to anesthetic agent; Z88.5 Allergy status to narcotic agent; Z88.8 Allergy status to other drugs, medicaments and biological substances; Z79.82 Long term (current) use of aspirin; Z93.3 Colostomy status; Z79.899 Other long term (current) drug therapy
CPT/HCPCS: 74177; 80053; 81001; 83690; 83735; 84484; 85025; 93005; 93010; 96374-59; 99285-25; A9270-GY; J0360; J7030; Q9967

== ENCOUNTER → 2020-12-21 | Outpatient (CLI) | payer MEDICARE, OTHER ==
[~2020-12-21] MED LIST changes: +CIPRO250 MG PO; +Flagyl250 MG PO; +REMERON15 MG PO
[2020-12-21 15:21] LABS: U Amphetamine Screen DETECTED; U Barbituate Screen Not Detected; U Benzodiazapine Screen Not Detected; U Buprenorphine Screen DETECTED; U Cannabinoids Screen DETECTED; U Cocaine Screen Not Detected; U Methadone Screen Not Detected; U Methamphetamine Screen DETECTED; U Opiates Screen Not Detected; U Oxycodone Screen DETECTED; U Phencyclidine Screen Not Detected; U Propoxyphene Screen Not Detected
== END | disposition home or self-care (01) ==
LOC: LAB SHORT 11:40 → PLD 11:40
PROVIDERS: Internal Medicine Hematology & Oncology
DX: Z51.81 Encounter for therapeutic drug level monitoring (principal); Z79.899 Other long term (current) drug therapy

== ENCOUNTER 2021-05-13 19:29 | Emergency (ER) | payer MEDICARE, OTHER ==
[~2021-05-13] VITALS: Ht 165.1 cm; Wt 36.3 kg
[2021-05-13 21:15] LABS: BASOPHILS ABSOLUTE AUTO 0.07 K/mm3 (0.00-0.23); BASOPHILS PERCENT AUTO 1 % (0-2); EOSINOPHILS ABSOLUTE AUTO 0.02 K/mm3 (0.00-0.68); EOSINOPHILS PERCENT AUTO 0 % (0-6); Hematocrit 45.9 % (37.0-53.0); Hemoglobin 15.6 g/dL (13.5-17.5); IMMATURE GRAN ABSOLUTE AUTO 0.05 K/mm3 (0.00-0.10); IMMATURE GRAN PERCENT AUTO 1 % (0-1); LYMPHOCYTES ABSOLUTE AUTO 2.11 K/mm3 (0.84-5.20); LYMPHOCYTES PERCENT AUTO 21 % (21-46); MONOCYTES ABSOLUTE AUTO 0.64 K/mm3 (0.16-1.47); MONOCYTES PERCENT AUTO 7 % (4-13); Mean Corpuscular HGB 29.2 pg (26.0-34.0); Mean Corpuscular Volume 86 fL (80-100); NEUTROPHILS PERCENT AUTO 71 % (41-73); Platelet Count 291 K/mm3 (150-400); RDW Coefficient Variation 15.6 % (11.7-14.2); RDW Standard Deviation 48.3 fL (35.1-46.3); Red Blood Cell Count 5.35 M/mm3 (4.30-5.90); White Blood Cell Count 9.89 K/mm3 (4.00-11.30)
[2021-05-13 21:37] LABS: Alanine Aminotransfer (ALT/SGP 23 U/L (12-78); Alk Phos 99 U/L (50-136); Anion Gap 9 mmol/L (6-16); Aspartate Aminotrans (AST/SGOT 35 U/L (12-37); Bilirubin, Total 0.6 mg/dL (0.1-1.0); Blood Urea Nitrogen 20 mg/dL (8-24); Bun/Creatinine Ratio 32.5 (12.0-20.0); CO2, Blood 20 mmol/L (21-32); Calcium, Blood 9.8 mg/dL (8.5-10.1); Chloride, Blood 106 mmol/L (98-108); Creatinine, Blood 0.62 mg/dL (0.60-1.20); Globulin, Blood 4.2 g/dL (2.2-4.0); Glomerular Filtration Rate >60 (60-); Glucose, Blood 96 mg/dL (70-99); Potassium, Blood 4.3 mmol/L (3.5-5.5); Sodium, Blood 135 mmol/L (136-145); Total Protein, Blood 8.2 g/dL (6.4-8.2); Troponin I <0.015 ng/mL (0.000-0.040)
== END 2021-05-14 00:49 | disposition home or self-care (01) ==
LOC: ER 19:29
PROVIDERS: Emergency Medicine
DX: R10.9 Unspecified abdominal pain (principal); R11.10 Vomiting, unspecified; Z88.4 Allergy status to anesthetic agent; Z88.8 Allergy status to other drugs, medicaments and biological substances; Z79.899 Other long term (current) drug therapy
CPT/HCPCS: 71045; 74177; 80053; 83690; 84484; 85025; 93005; 93010; 96361; 96374-59; 96375; 99285-25; A9270; J1170; J2405; J7030; Q9967

== ENCOUNTER 2021-06-04 14:45 | Emergency (ER) | payer MEDICARE, OTHER ==
[~2021-06-04] VITALS: Ht 167.6 cm; Wt 45.4 kg
[2021-06-04 15:12] LABS: BASOPHILS ABSOLUTE AUTO 0.03 K/mm3 (0.00-0.23); BASOPHILS PERCENT AUTO 0 % (0-2); EOSINOPHILS PERCENT AUTO 0 % (0-6); Hemoglobin 16.2 g/dL (13.5-17.5); IMMATURE GRAN ABSOLUTE AUTO 0.05 K/mm3 (0.00-0.10); IMMATURE GRAN PERCENT AUTO 0 % (0-1); LYMPHOCYTES ABSOLUTE AUTO 1.57 K/mm3 (0.84-5.20); LYMPHOCYTES PERCENT AUTO 12 % (21-46); MONOCYTES ABSOLUTE AUTO 0.68 K/mm3 (0.16-1.47); MONOCYTES PERCENT AUTO 5 % (4-13); Mean Corpuscular HGB 28.9 pg (26.0-34.0); Mean Corpuscular HGB Conc 33.8 g/dL (31.5-36.5); Mean Corpuscular Volume 86 fL (80-100); Mean Platelet Volume 9.8 fL (9.1-12.4); NEUTROPHILS ABSOLUTE AUTO 11.16 K/mm3 (1.96-9.15); NEUTROPHILS PERCENT AUTO 83 % (41-73); Platelet Count 334 K/mm3 (150-400); Red Blood Cell Count 5.61 M/mm3 (4.30-5.90); White Blood Cell Count 13.49 K/mm3 (4.00-11.30)
[2021-06-04 15:26] LABS: Alanine Aminotransfer (ALT/SGP 20 U/L (12-78); Albumin, Blood 4.2 g/dL (3.4-5.0); Alk Phos 117 U/L (50-136); Anion Gap 13 mmol/L (6-16); Aspartate Aminotrans (AST/SGOT 21 U/L (12-37); Bilirubin, Total 0.5 mg/dL (0.1-1.0); Blood Urea Nitrogen 17 mg/dL (8-24); CO2, Blood 23 mmol/L (21-32); Calcium, Blood 9.7 mg/dL (8.5-10.1); Chloride, Blood 103 mmol/L (98-108); Creatinine, Blood 0.89 mg/dL (0.60-1.20); Globulin, Blood 4.1 g/dL (2.2-4.0); Glomerular Filtration Rate >60 (60-); Glucose, Blood 171 mg/dL (70-99); Potassium, Blood 3.8 mmol/L (3.5-5.5); Sodium, Blood 139 mmol/L (136-145); Total Protein, Blood 8.3 g/dL (6.4-8.2)
[2021-06-04 16:42] LABS: Source, Urine Clean Catch
[2021-06-04 16:49] LABS: Appearance, Urine Clear (Clear); Bilirubin, Urine Neg (Neg); Blood, Urine 2+ (Neg); Color, Urine Yellow (P-Yellow); Glucose Qualitative, Urine Neg (Neg); Ketones, Urine 1+ (Neg); Leukocyte Esterase, Urine Neg (Neg); Nitrite, Urine Neg (Neg); Protein, Urine 2+ (Neg); Urobilinogen, Urine NORM (Normal)
[2021-06-04 16:56] LABS: White Blood Cells, Urine 0-2 /hpf (0-5)
[2021-06-04 16:57] LABS: Amorphous Light (0-Heavy); Bacteria Few /hpf; Hyaline Casts 0-2 /lpf (0-2); Squamous Epithelial Cells Few /hpf (Few)
[2021-06-04] MEDS ORDERED: CIPR500 PO (18:01)
[2021-06-04] MEDS ORDERED: METR500 PO (18:01)
== END 2021-06-04 18:26 | disposition home or self-care (01) ==
LOC: ER 14:45
PROVIDERS: Student in an Organized Health Care Education/Training Program
DX: K52.9 Noninfective gastroenteritis and colitis, unspecified (principal); F12.90 Cannabis use, unspecified, uncomplicated; K21.9 Gastro-esophageal reflux disease without esophagitis; I10 Essential (primary) hypertension; J44.9 Chronic obstructive pulmonary disease, unspecified; Z79.82 Long term (current) use of aspirin; Z88.8 Allergy status to other drugs, medicaments and biological substances; Z88.5 Allergy status to narcotic agent; Z88.2 Allergy status to sulfonamides; Z79.3 Long term (current) use of hormonal contraceptives; Z79.899 Other long term (current) drug therapy
CPT/HCPCS: 74177; 80053; 81001; 85025; 93005; 93010; 96361; 96374; 96375; 99284-25; A9270; J0744; J1790; J7030; Q9967

== ENCOUNTER 2021-09-05 06:21 | Emergency (ER) | payer MEDICARE, OTHER ==
[~2021-09-05] VITALS: Ht 167.6 cm; Wt 39.5 kg
[2021-09-05 07:58] LABS: BASOPHILS ABSOLUTE AUTO 0.06 K/mm3 (0.00-0.23); BASOPHILS PERCENT AUTO 1 % (0-2); EOSINOPHILS ABSOLUTE AUTO 0.08 K/mm3 (0.00-0.68); EOSINOPHILS PERCENT AUTO 1 % (0-6); Hemoglobin 15.4 g/dL (13.5-17.5); IMMATURE GRAN ABSOLUTE AUTO 0.03 K/mm3 (0.00-0.10); IMMATURE GRAN PERCENT AUTO 0 % (0-1); LYMPHOCYTES ABSOLUTE AUTO 2.09 K/mm3 (0.84-5.20); LYMPHOCYTES PERCENT AUTO 20 % (21-46); MONOCYTES ABSOLUTE AUTO 0.57 K/mm3 (0.16-1.47); MONOCYTES PERCENT AUTO 5 % (4-13); Mean Corpuscular HGB 28.2 pg (26.0-34.0); Mean Corpuscular HGB Conc 33.5 g/dL (31.5-36.5); Mean Corpuscular Volume 84 fL (80-100); Mean Platelet Volume 10.5 fL (9.1-12.4); NEUTROPHILS ABSOLUTE AUTO 7.73 K/mm3 (1.96-9.15); NEUTROPHILS PERCENT AUTO 73 % (41-73); Platelet Count 359 K/mm3 (150-400); RDW Coefficient Variation 14.9 % (11.7-14.2); RDW Standard Deviation 45.5 fL (35.1-46.3); Red Blood Cell Count 5.46 M/mm3 (4.30-5.90); White Blood Cell Count 10.56 K/mm3 (4.00-11.30)
[2021-09-05 08:19] LABS: Alanine Aminotransfer (ALT/SGP 30 U/L (12-78); Albumin, Blood 3.9 g/dL (3.4-5.0); Albumin/Globulin Ratio 0.9 (0.8-1.8); Alk Phos 95 U/L (50-136); Anion Gap 7 mmol/L (6-16); Aspartate Aminotrans (AST/SGOT 28 U/L (12-37); Bilirubin, Total 0.6 mg/dL (0.1-1.0); Blood Urea Nitrogen 19 mg/dL (8-24); Bun/Creatinine Ratio 24.9 (12.0-20.0); CO2, Blood 28 mmol/L (21-32); Calcium, Blood 9.7 mg/dL (8.5-10.1); Chloride, Blood 103 mmol/L (98-108); Creatinine, Blood 0.76 mg/dL (0.60-1.20); Globulin, Blood 4.2 g/dL (2.2-4.0); Glomerular Filtration Rate >60 (60-); Glucose, Blood 100 mg/dL (70-99); Potassium, Blood 4.2 mmol/L (3.5-5.5); Sodium, Blood 138 mmol/L (136-145); Total Protein, Blood 8.1 g/dL (6.4-8.2)
[2021-09-05] MEDS ORDERED: ONDA4ODT MM (11:13)
== END 2021-09-05 12:05 | disposition home or self-care (01) ==
LOC: ER 06:21
PROVIDERS: Emergency Medicine
DX: R11.2 Nausea with vomiting, unspecified (principal); R19.7 Diarrhea, unspecified; R10.9 Unspecified abdominal pain; Z88.5 Allergy status to narcotic agent; Z88.6 Allergy status to analgesic agent; Z88.8 Allergy status to other drugs, medicaments and biological substances; I25.2 Old myocardial infarction; I25.10 Atherosclerotic heart disease of native coronary artery without angina pectoris; J44.9 Chronic obstructive pulmonary disease, unspecified; I10 Essential (primary) hypertension; E78.5 Hyperlipidemia, unspecified; F17.200 Nicotine dependence, unspecified, uncomplicated
CPT/HCPCS: 36415; 74177; 80053; 83690; 85025; 96374; 96375; 96376; 99285-25; J1170; J2405; J7030; Q9967

== ENCOUNTER 2021-10-30 14:40 | Emergency (ER) | payer MEDICARE, OTHER ==
[~2021-10-30] VITALS: Ht 157.5 cm; Wt 37.6 kg
[2021-10-30 15:12] LABS: BASOPHILS ABSOLUTE AUTO 0.05 K/mm3 (0.00-0.23); BASOPHILS PERCENT AUTO 0 % (0-2); EOSINOPHILS ABSOLUTE AUTO 0.01 K/mm3 (0.00-0.68); EOSINOPHILS PERCENT AUTO 0 % (0-6); Hematocrit 40.6 % (37.0-53.0); Hemoglobin 13.9 g/dL (13.5-17.5); IMMATURE GRAN ABSOLUTE AUTO 0.06 K/mm3 (0.00-0.10); IMMATURE GRAN PERCENT AUTO 1 % (0-1); LYMPHOCYTES ABSOLUTE AUTO 0.97 K/mm3 (0.84-5.20); LYMPHOCYTES PERCENT AUTO 7 % (21-46); MONOCYTES ABSOLUTE AUTO 0.44 K/mm3 (0.16-1.47); MONOCYTES PERCENT AUTO 3 % (4-13); Mean Corpuscular HGB 29.1 pg (26.0-34.0); Mean Corpuscular HGB Conc 34.2 g/dL (31.5-36.5); Mean Corpuscular Volume 85 fL (80-100); NEUTROPHILS ABSOLUTE AUTO 11.77 K/mm3 (1.96-9.15); NEUTROPHILS PERCENT AUTO 88 % (41-73); Platelet Count 256 K/mm3 (150-400); RDW Coefficient Variation 13.9 % (11.7-14.2); RDW Standard Deviation 43.6 fL (35.1-46.3); Red Blood Cell Count 4.77 M/mm3 (4.30-5.90)
[2021-10-30] MEDS ORDERED: REMERON PO (15:12)
[2021-10-30] MEDS ORDERED: ONDANSETRON ODT 4MG PO (15:13)
[2021-10-30] MEDS ORDERED: HYDMOR4 PO (15:13)
[2021-10-30] MEDS ORDERED: OXYC5 (15:14)
[2021-10-30 15:26] LABS: Source, Urine Clean Catch
[2021-10-30 15:30] LABS: Appearance, Urine Hazy (Clear); Bilirubin, Urine Neg (Neg); Blood, Urine Neg (Neg); Color, Urine Yellow (P-Yellow); Glucose Qualitative, Urine Neg (Neg); Ketones, Urine 2+ (Neg); Leukocyte Esterase, Urine Neg (Neg); Nitrite, Urine Neg (Neg); Protein, Urine Neg (Neg); Specific Gravity, Urine 1.015 (1.003-1.022); Urobilinogen, Urine NORM (Normal)
[2021-10-30 15:41] LABS: Bacteria Mod /hpf; Red Blood Cells, Urine 0-2 /hpf (0-2); Squamous Epithelial Cells Few /hpf (Few); White Blood Cells, Urine 0-2 /hpf (0-5)
[2021-10-30 15:42] LABS: Amorphous Heavy (0-Heavy); Mucus Light (0-Heavy)
[2021-10-30 15:50] LABS: Alanine Aminotransfer (ALT/SGP 20 U/L (12-78); Albumin, Blood 3.8 g/dL (3.4-5.0); Albumin/Globulin Ratio 1.2 (0.8-1.8); Alk Phos 70 U/L (50-136); Anion Gap 7 mmol/L (6-16); Aspartate Aminotrans (AST/SGOT 21 U/L (12-37); Bilirubin, Total 0.4 mg/dL (0.1-1.0); Blood Urea Nitrogen 20 mg/dL (8-24); Bun/Creatinine Ratio 28.2 (12.0-20.0); CO2, Blood 28 mmol/L (21-32); Calcium, Blood 9.1 mg/dL (8.5-10.1); Chloride, Blood 106 mmol/L (98-108); Creatinine, Blood 0.71 mg/dL (0.60-1.20); Globulin, Blood 3.3 g/dL (2.2-4.0); Glomerular Filtration Rate >60 (60-); Glucose, Blood 119 mg/dL (70-99); Potassium, Blood 3.4 mmol/L (3.5-5.5); Sodium, Blood 141 mmol/L (136-145); Total Protein, Blood 7.1 g/dL (6.4-8.2)
== END 2021-10-30 19:03 | disposition home or self-care (01) ==
LOC: ER 14:40
PROVIDERS: Physician Assistant
DX: K29.70 Gastritis, unspecified, without bleeding (principal); D50.9 Iron deficiency anemia, unspecified; K21.9 Gastro-esophageal reflux disease without esophagitis; E78.5 Hyperlipidemia, unspecified; J44.9 Chronic obstructive pulmonary disease, unspecified; Z79.899 Other long term (current) drug therapy; Z86.79 Personal history of other diseases of the circulatory system; Z88.6 Allergy status to analgesic agent; Z88.5 Allergy status to narcotic agent
CPT/HCPCS: 74177; 80053; 81001; 83690; 85025; 93005; 93010; 96374-59; 96375; 96376; 99285-25; A9270; J1170; J2405; J7030; Q9967

== ENCOUNTER 2021-10-31 17:03 | Emergency (ER) | payer MEDICARE, OTHER ==
[~2021-10-31] VITALS: Ht 167.6 cm; Wt 37.6 kg
[~2021-10-31 17:03] MED LIST changes: +ONDANSETRON ODT 4MG PO; +REMERON PO
[2021-10-31 18:41] LABS: BASOPHILS ABSOLUTE AUTO 0.03 K/mm3 (0.00-0.23); BASOPHILS PERCENT AUTO 0 % (0-2); EOSINOPHILS ABSOLUTE AUTO 0.01 K/mm3 (0.00-0.68); EOSINOPHILS PERCENT AUTO 0 % (0-6); Hematocrit 41.5 % (37.0-53.0); Hemoglobin 14.1 g/dL (13.5-17.5); IMMATURE GRAN ABSOLUTE AUTO 0.05 K/mm3 (0.00-0.10); IMMATURE GRAN PERCENT AUTO 0 % (0-1); LYMPHOCYTES PERCENT AUTO 16 % (21-46); MONOCYTES ABSOLUTE AUTO 1.11 K/mm3 (0.16-1.47); MONOCYTES PERCENT AUTO 9 % (4-13); Mean Corpuscular HGB 29.8 pg (26.0-34.0); Mean Corpuscular Volume 88 fL (80-100); Mean Platelet Volume 10.3 fL (9.1-12.4); NEUTROPHILS ABSOLUTE AUTO 8.71 K/mm3 (1.96-9.15); NEUTROPHILS PERCENT AUTO 74 % (41-73); Platelet Count 248 K/mm3 (150-400); RDW Coefficient Variation 14.2 % (11.7-14.2); RDW Standard Deviation 46.1 fL (35.1-46.3); Red Blood Cell Count 4.73 M/mm3 (4.30-5.90); White Blood Cell Count 11.81 K/mm3 (4.00-11.30)
[2021-10-31 19:04] LABS: Alanine Aminotransfer (ALT/SGP 18 U/L (12-78); Albumin/Globulin Ratio 1.1 (0.8-1.8); Alk Phos 70 U/L (50-136); Anion Gap 5 mmol/L (6-16); Aspartate Aminotrans (AST/SGOT 25 U/L (12-37); Bilirubin, Total 0.7 mg/dL (0.1-1.0); Blood Urea Nitrogen 28 mg/dL (8-24); Bun/Creatinine Ratio 26.2 (12.0-20.0); CO2, Blood 31 mmol/L (21-32); Calcium, Blood 9.2 mg/dL (8.5-10.1); Chloride, Blood 98 mmol/L (98-108); Creatinine, Blood 1.07 mg/dL (0.60-1.20); Globulin, Blood 3.6 g/dL (2.2-4.0); Glomerular Filtration Rate >60 (60-); Glucose, Blood 108 mg/dL (70-99); Potassium, Blood 3.2 mmol/L (3.5-5.5); Sodium, Blood 134 mmol/L (136-145); Total Protein, Blood 7.6 g/dL (6.4-8.2)
== END 2021-10-31 21:35 | disposition home or self-care (01) ==
LOC: ER 17:03
PROVIDERS: Emergency Medicine
DX: R55 Syncope and collapse (principal); E87.8 Other disorders of electrolyte and fluid balance, not elsewhere classified; I25.2 Old myocardial infarction; I25.10 Atherosclerotic heart disease of native coronary artery without angina pectoris; J44.9 Chronic obstructive pulmonary disease, unspecified; I10 Essential (primary) hypertension; I73.9 Peripheral vascular disease, unspecified; E78.5 Hyperlipidemia, unspecified; K21.9 Gastro-esophageal reflux disease without esophagitis; F17.200 Nicotine dependence, unspecified, uncomplicated; Z88.5 Allergy status to narcotic agent; Z88.6 Allergy status to analgesic agent; Z88.8 Allergy status to other drugs, medicaments and biological substances; Z79.899 Other long term (current) drug therapy
CPT/HCPCS: 36415; 70450; 70498; 80053; 85025; 93005; 93010; 99284-25; J7030; Q9967

== ENCOUNTER → 2022-07-14 | Outpatient (CLI) | payer MEDICARE, OTHER ==
[2022-07-14 13:26] LABS: U Amphetamine Screen Not Detected; U Barbituate Screen Not Detected; U Benzodiazapine Screen DETECTED; U Cannabinoids Screen DETECTED; U Cocaine Screen Not Detected; U Methadone Screen Not Detected; U Methamphetamine Screen Not Detected; U Opiates Screen Not Detected; U Phencyclidine Screen Not Detected
[2022-07-14 13:27] LABS: U Buprenorphine Screen DETECTED; U Oxycodone Screen DETECTED; U Propoxyphene Screen Not Detected
[2022-07-18 19:08] LABS: CARBOXY-THC 96 (.)
== END | disposition home or self-care (01) ==
LOC: LAB SHORT 10:02 → LAB 10:02
PROVIDERS: Internal Medicine Hematology & Oncology
DX: Z51.81 Encounter for therapeutic drug level monitoring (principal); Z79.899 Other long term (current) drug therapy